=== PATIENT | female | born 1980 | race Caucasian/White ===

== ENCOUNTER 2020-01-09 15:24 | Outpatient (CLI) | payer BC, OTHER, SELFPAY ==
--- NOTE | 2020-01-09 15:53 | CT_ITS ---
WS: [id number] CT scan of the abdomen and pelvis with IV contrast. Additional two-dimensional coronal and sagittal reconstruction was performed. 01/09/2020 Clinical Data: POST SURGICAL ABDOMINAL PAIN Comparison: CT abdomen and pelvis, 10/05/2019. DLP: 1107.[address] scans at [facility] use at least one of these dose optimization techniques: automat ed exposure control; mA and/or kV adjustment per patient size (includes targeted exams where dose is matched to clinical indication); or iterative reconstruction. Findings: The lower lungs show no nodules, masses or effusions. The liver, gallbladder, spleen, adrenal glands and pancreas are normal. The kidneys show equal bilateral contrast excretion with no cyst or masses. The abdominal aorta is normal in size. No appendicitis or diverticulitis is seen. The stomach, small bowel and colon show no abnormalities. There is a duodenal diverticulum which is not changed. The patient is had sigmoid surgery. There is a fluid containing structure adjacent to the anastomosis measuring 2.50 cm which has the appearance of an adnexal cyst. No abscess, adenopathy, ascites, mass, obstruction or free air is seen. The bladder is unremarkable. Uterus is normal. 0No inguinal hernia is seen. The bones of the lower thorax, lumbar spine, pelvis, and hips are normal. CT/CT abdomen pelvis w con* [id number] Impression: 1. Recent surgery in the sigmoid colon but no abscess seen. 2. Small fluid containing structure in the left adnexa which appears to be an o varian cyst. Recommend pelvic ultrasound for confirmation.
[2020-01-09] MEDS: iohexol 300 mg/mL 100 mL Btl IV (16:02)
== END 2020-01-09 15:25 | disposition home or self-care (01) ==
PROVIDERS: Family Provider Nurse Practitioner Family; PCP Emergency Medicine; Visit Provider Emergency Medicine
DX: G89.18 Other acute postprocedural pain (principal); Z98.890 Other specified postprocedural states
CPT/HCPCS: 74177; 80053; 81000; 85025; Q9967

== ENCOUNTER 2020-01-15 14:59 | Outpatient (CLI) | payer BC, OTHER, SELFPAY ==
--- NOTE | 2020-01-15 15:45 | US_ITS ---
WS: [id number] ULTRASOUND PELVIS TECHNIQUE: Transabdominal. CLINICAL INFORMATION: acute abdominal pain LMP: : No. COMPARISON: None. FINDINGS: Uterus Orientation: Anteverted. Size: 9.2 cm x 4.0 cm x 2.6 cm Masses: None. Cervix: Normal Endometrium: Normal. Endometrium thickness: 0.2 cm. Adnexa: Hypoechoic lesion left ovary with some internal echoes likely represents hemorrhagic cyst vikki suring 2.2 x 1.9 x 1.8 cm. Right ovary size: 3.0 cm x 1.9 cm x 1.9 cm. Right ovary volume: 5.8 ccm3 Left ovary size: 3.7 cm x 2.6 cm x 2.3 cm. Left ovary volume: 11.5 ccm3 Free fluid: Small amount of free fluid in the cul-de-sac Other findings: None. US/US pelvic complete* [id number] IMPRESSION: 1. Uterus measures 9.1 x 2.6 x 3.9 CM. 2. Normal endometrium measuring 1.6 mm. 3. Both ovaries are normal in appearance. 4. Small hemorrhagic cyst left ovary measuring 2.2 x 1.9 x 1.8 cm. Recommend f ollow-up in one to 2 menstrual cycles. 5. Small amount of free fluid in the cul-de-sac.
== END 2020-01-15 15:00 | disposition home or self-care (01) ==
PROVIDERS: Family Provider Nurse Practitioner Family; PCP Emergency Medicine; Visit Provider Emergency Medicine
DX: R10.9 Unspecified abdominal pain (principal); N83.202 Unspecified ovarian cyst, left side
CPT/HCPCS: 76856

== ENCOUNTER → 2020-04-21 11:07 | Outpatient (BNVA) | payer BC, OTHER, SELFPAY | PROVIDERS: Family Provider Nurse Practitioner Family; PCP Emergency Medicine; Visit Provider Family Medicine | DX: R19.7 Diarrhea, unspecified (principal); I10 Essential (primary) hypertension; R10.12 Left upper quadrant pain; K90.9 Intestinal malabsorption, unspecified | CPT/HCPCS: 80053; 81000; 83690; 85025; 85610; 87493 ==

== ENCOUNTER → 2020-08-02 10:53 | Outpatient (BNVA) | payer BC, SELFPAY | PROVIDERS: Family Provider Nurse Practitioner Family; PCP Emergency Medicine; Visit Provider Nurse Practitioner Family | DX: J06.9 Acute upper respiratory infection, unspecified (principal); Z20.828 Contact with and (suspected) exposure to other viral communicable diseases | CPT/HCPCS: 87635 ==

== ENCOUNTER → 2020-09-08 11:26 | Outpatient (BNVA) | payer BC, SELFPAY | PROVIDERS: Family Provider Nurse Practitioner Family; PCP Emergency Medicine; Visit Provider Nurse Practitioner Family | DX: Z20.828 Contact with and (suspected) exposure to other viral communicable diseases (principal); J06.9 Acute upper respiratory infection, unspecified | CPT/HCPCS: 87635 ==

== ENCOUNTER → 2020-09-28 17:10 | Outpatient (BNVA) | payer BC, SELFPAY | PROVIDERS: Family Provider Nurse Practitioner Family; PCP Emergency Medicine; Visit Provider Nurse Practitioner Family | DX: B34.9 Viral infection, unspecified (principal); Z20.828 Contact with and (suspected) exposure to other viral communicable diseases | CPT/HCPCS: 87635 ==

== ENCOUNTER 2020-10-19 22:24 | Emergency (ER) | payer BC, OTHER, SELFPAY ==
[2020-10-19 22:27] VITALS: BP 137/97; PULSE 105; RESP 18; TEMP 36.8; O2SAT 97; BMI 35.9
[2020-10-19 23:14] LABS: Basophils # 0.1 10^3/uL (0.0-0.1); Basophils % 0.9 %; Eosinophils # 0.2 10^3/uL (0.0-0.8); Eosinophils % 2.5 %; Hematocrit 45.9 % (37.0-47.0); Hemoglobin 15.3 g/dL (11.5-15.3); Lymphocytes # 2.8 10^3/uL (0.8-4.8); Lymphocytes % 41.2 %; Mean Corpuscular HGB Conc 33.3 g/dL (30.0-36.0); Mean Corpuscular Hemoglobin 31.7 pg (28.0-34.0); Mean Platelet Volume 8.6 fL (7.4-10.4); Monocytes # 0.4 10^3/uL (0.2-0.9); Monocytes % 5.7 %; Neutrophils # 3.31 10^3/uL (1.8-7.7); Neutrophils % 49.3 %; Nucleated Red Blood Cells % 0 %; Platelet Count 307 10^3/cmm (130-400); Red Blood Count 4.83 10^6/uL (4.1-5.3); Red Cell Distribution Width 12.7 % (12.1-15.1); White Blood Count 6.7 10^3/uL (4.0-10.0)
[2020-10-19 23:40] LABS: Alanine Aminotransferase 58 U/L (0-33); Albumin Level 3.9 g/dL (3.5-5.2); Alkaline Phosphatase 93 IU/L (35-105); Anion Gap 15.9 (5-19); Aspartate Amino Transferase 53 U/L (0-32); Blood Urea Nitrogen 7 mg/dL (6-20); Calcium 9.1 mg/dL (8.5-10.5); Carbon Dioxide 22 mmol/L (22-29); Chloride 104 mmol/L (98-107); Globulin 3.4 g/dL (1.3-4.6); Glomerular Filtration Rate 78.7 mL/min (90-130); Glucose 116 mg/dL (65-115); Lipase 35 U/L (13-60); Osmolality Calculated 285 mOsm/kg (285-295); Potassium 3.9 mmol/L (3.5-5.1); Sodium 138 mmol/L (136-145); Total Bilirubin 0.2 mg/dL (0.15-1.2); Total Protein 7.3 g/dL (6.6-8.7)
[2020-10-20 00:57] LABS: HCG Qualitative Urine. Negative (Negative)
== END 2020-10-20 01:21 | disposition left against medical advice (07) ==
PROVIDERS: Emergency Medicine; Emergency Provider Family Medicine; PCP Emergency Medicine
DX: Z53.21 Procedure and treatment not carried out due to patient leaving prior to being seen by health care provider (principal)
CPT/HCPCS: 80053; 81025; 83690; 85025; 99281; 99282

== ENCOUNTER 2020-10-20 12:44 | Emergency (ER) | payer BC, OTHER, SELFPAY ==
[2020-10-20 13:25] VITALS: BP 156/106; PULSE 91; RESP 16; TEMP 36.8; O2SAT 99; BMI 35.9
--- NOTE | 2020-10-20 14:22 | CT_ITS ---
WS: [id number] CT ABDOMEN AND PELVIS WITH CONTRAST HISTORY: diffuse abdominal pain TECHNIQUE: Imaging performed of the abdomen and pelvis with IV contrast. Single phase imaging of the abdomen. Coronal and sagittal reformats are submitted. All CT scans at [facility] use at least one of these dose optimization techniques: automated exposure control; mA and/or kV adjustment per patient size (includes targeted exams where dose is matched to clinical indication); or iterativ e reconstruction. IV CONTRAST: Omnipaque 300; 95 mL IV. Oral contrast: No DLP: 1090.0 mGy.cm COMPARISON: 01/09/2020 Lower thorax: Lung bases are clear. Heart is normal size. Small hiatal hernia. Liver/biliary system: Moderately enlarged liver with low attenuation from hepatic steatosis. No defin ite enhancing masses within the liver. Indeterminate for small hemangioma in the lateral RIGHT lobe o f the liver. No bile duct dilatation. Gallbladder: Normal. No gallstones or wall thickening. No pericholecystic fluid. Pancreas: Normal. Spleen: Normal. Adrenal glands: Normal. Right kidney: Normal. Left kidney: Normal. Aorta: Normal. Lymphadenopathy: None. Free fluid: None. GI tract: Normal appendix. The appendix is retrohepatic. No GI tract obstruction. There is moderate f ecal retention from constipation. Surgical sutures are noted near the sigmoid. No acute diverticuliti s. Abdominal wall: Ventral abdominal wall hernia. The orifice measures 2.6 cm. Herniated omental fat wit h stranding and reticulation through the herniated fat. Pelvis: Normally distended urinary bladder. Normal size anteverted uterus. No free fluid. Bones: Unremarkable. CT/CT abdomen pelvis w con* [id number] IMPRESSION: 1. Ventral abdominal wall hernia with herniated omental fat. Herniated omental fat has undergone acute fat necrosis. Typically this is self limiting. 2. Normal appendix. No renal obstruction. 3. Moderate hepatomegaly and hepatic steatosis.
--- NOTE | 2020-10-20 14:23 | W.ED.ABDPA2 ---
HPI - Abdominal Pain General: Chief Complaint: Abdominal Pain Stated Complaint: abd pain Time Seen by Provider: 10/20/20 14:15 Source: patient Mode of arrival: ambulatory Limitations: no limitations History of Present Illness: HPI narrative: Patient is a very nice 40-year-old female who presents to ED today with a complaint of diffuse abdominal pain. Patient tells me approximately a year ago she had a colon resection performed due to diverticulitis. Patient tells me since then she has suffered from intermittent chronic abdominal pains. She states over the past 3 days she has had abdominal pain that does not feel characteristic of her chronic pain. She is reporting pain that is intermittent and severe in nature. She is having nausea without vomiting. She describes chronic diarrhea that has been present since her surgery. There have been no acute changes in her bowel habits. She has not been running fevers. No urinary symptoms. Her only other abdominal surgery includes a section. MD elicited complaint: abdominal pain Pertinent past history: diverticulitis Onset (ago): day(s) Pain Consistency: constant and colicky Location: Diffuse Severity: moderate Radiation: none Migration to: no migration Exacerbating factors: nothing Relieving factors: nothing Associated Symptoms: Reports nausea; Denies change in stool character, chills, coffee ground emesis, dysuria, excessive flatus, fever(s), hematochezia, hematemesis, melena and vomiting Related Data: Date of Last Menstrual Period: 09/16/19 Patient : No Review of Systems Const: Denies: fever(s), chills, body aches, fatigue or malaise Card: Denies: chest pain Resp: Denies: dyspnea GI: Reports: abdominal pain, nausea and diarrhea (chronic); Denies: vomiting, hematemesis, coffee ground emesis, excessive flatus, pain on defecation, change in stool character, hematochezia, melena or white/light colored stool : Denies: flank pain, difficulty voiding, dysuria, urinary frequency, urinary urgency or urinary hesitancy Musc: Denies: neck pain or back pain Skin/Breast: Denies: rash Neuro: Denies: headache(s) PFS ED PFSH: Medical History Depression, major ANGELA (generalized anxiety disorder) GERD (gastroesophageal reflux disease) Hypertension Surgical History History of partial colectomy Social History (Updated 10/20/20 @ 13:29 by Jose Johnston RN) Smoking and tobacco status: never smoked Alcohol intake: current Alcohol intake frequency: 0-2 Drinks per Day Alcohol type: beer History of recent travel: No Female Reproductive History: Date of last menstrual period: 09/16/19 Spontaneous abortions: No Physical Exam Const: COMMON NORMALS: no acute distress, patient oriented x3, no limitations and alert GENERAL APPEARANCE: cooperative and in distress (appears uncomfortable ) NUTRITIONAL APPEARANCE: obese HENMT: COMMON NORMALS: normocephalic and atraumatic HEAD & SCALP: normocephalic and atraumatic Resp: COMMON NORMALS: normal respiratory effort and clear to auscultation bilaterally AUSCULTATION: clear to auscultation bilaterally Cardio: COMMON NORMALS: regular rate and regular rhythm RATE: regular rate RHYTHM: regular rhythm GI: COMMON NORMALS: Normal to inspection, nondistended, normoactive bowel sounds present, Soft to palpation, No hepatosplenomegaly present and no masses PALPATION: Yes Soft to palpation, Yes Tenderness to palpation present (GI) (diffusely ), Yes No hepatosplenomegaly present and Yes Hernia present (palpable with valsalva; no overlying skin changes ) ventral : COMMON NORMALS: Yes no CVA tenderness BLADDER/KIDNEY EXAM: Yes no CVA tenderness EXTERNAL FEMALE EXAM: Yes Hernia present (palpable with valsalva; no overlying skin changes ) Back/Pelvis: COMMON NORMALS: no CVA tenderness Extremity: COMMON NORMALS: no clubbing, cyanosis or edema, no calf tenderness and no pedal edema Neuro: COMMON NORMALS: patient oriented x3 SENSORIUM/ORIENTATION: Yes alert Skin: COMMON NORMALS: no rashes or lesions noted GENERAL SKIN EXAM: no rashes or lesions noted Course Consultations: Consultation #1: Dr. Mcgovern-reviewed pts CT imaging and recommends seeing her in office on Sunday. Stated pt needs to return to ED for worsening symptoms/pain. Vital Signs: Vital signs: Vital Signs Temperature 98.2 F 10/20/20 13:25 Pulse Rate 88 10/20/20 14:30 Respiratory Rate 16 10/20/20 15:59 Blood Pressure 137/94 10/20/20 14:30 Pulse Oximetry 98 10/20/20 14:30 MDM - Abdominal Pain MDM Narrative: Medical decision making narrative: Patient here with acute on chronic abdominal pain. Her vital signs and labs are non-concerning at this time. CT scan showing a ventral hernia with acute omental fat necrosis. General surgery has reviewed patient's CT scan will see her on Sunday. She has been made aware she needs to return to the emergency department for worsening symptoms. Lab Data: Labs: Lab Results 10/20/20 10/20/20 10/20/20 Range/Units 15:20 15:20 15:20 WBC 7.7 (4.0-10.0) 10^3/ uL RBC 4.40 (4.1-5.3) 10^6/u L Hgb 13.9 (11.5-15.3) g/dL Hct 40.9 (37.0-47.0) % MCV 93.0 (81-99) fL MCH 31.6 (28.0-34.0) pg MCHC 34.0 (30.0-36.0) g/dL RDW 12.5 (12.1-15.1) % Plt Count 261 (130-400) 10^3/c mm MPV 8.7 (7.4-10.4) fL Neut % (Auto) 61.1 % Lymph % (Auto) 29.5 % [place] % (Auto) 6.7 % Eos % (Auto) 1.7 % Baso % (Auto) 0.5 % Neut # (Auto) 4.72 (1.8-7.7) 10^3/u L Lymph # (Auto) 2.3 (0.8-4.8) 10^3/u L [place] # (Auto) 0.5 (0.2-0.9) 10^3/u L Eos # (Auto) 0.1 (0.0-0.8) 10^3/u L Baso # (Auto) 0.0 (0.0-0.1) 10^3/u L Nucleated RBC % (a uto) 0 % Nucleated RBCs # 0.0 /100WBC Sodium 133 L (136-145) mmol/L Potassium 3.8 (3.5-5.1) mmol/L Chloride 100 (98-107) mmol/L Carbon Dioxide 25 (22-29) mmol/L Anion Gap 11.8 (5-19) BUN 7 (6-20) mg/dL Creatinine 0.7 (0.5-0.9) mg/dL GFR Calculation 91.8 (90-130) mL/min Glucose 89 (65-115) mg/dL Calculated Osmolal ity 273 L (285-295) mOsm/k g Calcium 8.6 (8.5-10.5) mg/dL Total Bilirubin 0.4 (0.15-1.2) mg/dL AST 43 H (0-32) U/L ALT 52 H (0-33) U/L Alkaline Phosphata se 85 (35-105) IU/L Total Protein 6.6 (6.6-8.7) g/dL Albumin 3.5 (3.5-5.2) g/dL Globulin 3.1 (1.3-4.6) g/dL Lipase 27 (13-60) U/L HCG, Qual Negative (Negative) Urine Color (Yellow) Urine Appearance (CLEAR) Urine pH (5-7) Ur Specific Gravit y (1.005-1.030) Urine Protein (Negative) Urine Glucose (UA) (Normal) Urine Ketones (Negative) Urine Blood (Negative) Urine Nitrate (Negative) Urine Bilirubin (Negative) Urine Urobilinogen (Negative) mg/dL Ur Leukocyte Ernestine ase (Negative) 10/20/20 Range/Units 15:35 WBC (4.0-10.0) 10^3/ uL RBC (4.1-5.3) 10^6/u L Hgb (11.5-15.3) g/dL Hct (37.0-47.0) % MCV (81-99) fL MCH (28.0-34.0) pg MCHC (30.0-36.0) g/dL RDW (12.1-15.1) % Plt Count (130-400) 10^3/c mm MPV (7.4-10.4) fL Neut % (Auto) % Lymph % (Auto) % [place] % (Auto) % Eos % (Auto) % Baso % (Auto) % Neut # (Auto) (1.8-7.7) 10^3/u L Lymph # (Auto) (0.8-4.8) 10^3/u L [place] # (Auto) (0.2-0.9) 10^3/u L Eos # (Auto) (0.0-0.8) 10^3/u L Baso # (Auto) (0.0-0.1) 10^3/u L Nucleated RBC % (a uto) % Nucleated RBCs # /100WBC Sodium (136-145) mmol/L Potassium (3.5-5.1) mmol/L Chloride (98-107) mmol/L Carbon Dioxide (22-29) mmol/L Anion Gap (5-19) BUN (6-20) mg/dL Creatinine (0.5-0.9) mg/dL GFR Calculation (90-130) mL/min Glucose (65-115) mg/dL Calculated Osmolal ity (285-295) mOsm/k g Calcium (8.5-10.5) mg/dL Total Bilirubin (0.15-1.2) mg/dL AST (0-32) U/L ALT (0-33) U/L Alkaline Phosphata se (35-105) IU/L Total Protein (6.6-8.7) g/dL Albumin (3.5-5.2) g/dL Globulin (1.3-4.6) g/dL Lipase (13-60) U/L HCG, Qual (Negative) Urine Color Yellow (Yellow) Urine Appearance Clear (CLEAR) Urine pH 5 (5-7) Ur Specific Gravit y 1.005 (1.005-1.030) Urine Protein Neg (Negative) Urine Glucose (UA) Norm (Normal) Urine Ketones Negative (Negative) Urine Blood Neg (Negative) Urine Nitrate Negative (Negative) Urine Bilirubin Neg (Negative) Urine Urobilinogen Norm (Negative) mg/dL Ur Leukocyte Ernestine ase Negative (Negative) Imaging Data ^: CT Abd/Pel: Radiologist's impression: [address] [place] [address] CT Scan Report Signed Patient: Leidy Logn #: [id number] : 1980Acct#:[id number] Age/Sex: 40 / FADM Date: 10/20/20 Loc: ERRoom/Bed: Attending Dr: Ordering Provider/Ordering MD: Nola Burt Date of Service: 10/20/20 Procedure(s): CT abdomen pelvis w con* [id number] Accession Number(s): [id number] Report Number: [id number] WS: [id number] CT ABDOMEN AND PELVIS WITH CONTRAST HISTORY: diffuse abdominal pain TECHNIQUE: Imaging performed of the abdomen and pelvis with IV contrast. Single phase imaging of the abdomen. Coronal and sagittal reformats are submitted. All CT scans at [facility] use at least one of these dose optimization techniques: automated exposure control; mA and/or kV adjustment per patient size (includes targeted exams where dose is matched to clinical indication); or iterative reconstruction. IV CONTRAST: Omnipaque 300; 95 mL IV. Oral contrast: No DLP: 1090.0 mGy.cm COMPARISON: 01/09/2020 Lower thorax: Lung bases are clear. Heart is normal size. Small hiatal hernia. Liver/biliary system: Moderately enlarged liver with low attenuation from hepatic steatosis. No definite enhancing masses within the liver. Indeterminate for small hemangioma in the lateral RIGHT lobe of the liver. No bile duct dilatation. Gallbladder: Normal. No gallstones or wall thickening. No pericholecystic fluid. Pancreas: Normal. Spleen: Normal. Adrenal glands: Normal. Right kidney: Normal. Left kidney: Normal. Aorta: Normal. Lymphadenopathy: None. Free fluid: None. GI tract: Normal appendix. The appendix is retrohepatic. No GI tract obstruction. There is moderate fecal retention from constipation. Surgical sutures are noted near the sigmoid. No acute diverticulitis. Abdominal wall: Ventral abdominal wall hernia. The orifice measures 2.6 cm. Herniated omental fat with stranding and reticulation through the herniated fat. Pelvis: Normally distended urinary bladder. Normal size anteverted uterus. No free fluid. Bones: Unremarkable. CT/CT abdomen pelvis w con* [id number] IMPRESSION: 1. Ventral abdominal wall hernia with herniated omental fat. Herniated omental fat has undergone acute fat necrosis. Typically this is self limiting. 2. Normal appendix. No renal obstruction. 3. Moderate hepatomegaly and hepatic steatosis. Dictated By:Dorothy Wilkinson DO Signed By:Dorothy Wilkinson DOSigned Date/Time:10/20/20 1539 DD/ 1533 Discharge Plan Discharge Patient Disposition: Home Clinical Impression: Ventral hernia Qualifiers: Obstruction and gangrene presence: without obstruction or gangrene Qualified Code(s): K43.9 - Ventral hernia without obstruction or gangrene Condition: Stable Prescriptions: New hydrocodone-acetaminophen 5-325 mg tablet 1 tab PO Q6H PRN (Reason: pain) Qty: 20 RF: 0 Zofran 4 mg tablet 4 mg PO Q6H PRN (Reason: nausea and vomiting) Qty: 14 RF: 0 No Action fluoxetine 10 mg capsule 10 mg PO DAILY 30 Days Qty: 30 RF: 2 metoprolol succinate 50 mg tablet extended release 24 hr 50 mg PO DAILY 30 Days Qty: 30 RF: 2 medroxyprogesterone 150 mg/mL suspension 150 mg IM .Every three months 90 Days Qty: 1 RF: 3 omeprazole 20 mg capsule,delayed release(DR/EC) 20 mg PO BID 30 Days Qty: 60 RF: 2 Discharge Orders: Discharge ED (Routine); Ordered 10/20/20 Ordered By: Nola Burt Referrals: Michael Mcgovern MD [Physician] - Eb Blanco PA [Primary Care Provider] - Patient Instructions: Abdominal Hernia, Ventral Hernia (ED) Activity Restrictions/Additional Instructions: As discussed case management should contact you shortly to set you up with your appointment for Dr. Mcgovern on Sunday. You need to return to the emergency department immediately for worsening or severe abdominal pains, repetitive episodes of vomiting, inability to have a bowel movement or pass gas, fevers, overlying redness/warmth to your hernia, or any other concerns you may have. Stand Alone Forms: Work/School Release Coding Level of Care Code ED Infrastructure Solutions Architect for Chg Fwd Exam Comprehensive
[2020-10-20 14:29] VITALS: BP 157/113; PULSE 82; RESP 16; O2SAT 98
[2020-10-20 14:30] VITALS: BP 137/94; PULSE 88; RESP 16; O2SAT 98
[2020-10-20] MEDS: iohexol 300 mg/mL 100 mL Btl IV (15:07)
[2020-10-20 15:35] LABS: Basophils % 0.5 %; Eosinophils # 0.1 10^3/uL (0.0-0.8); Eosinophils % 1.7 %; Hematocrit 40.9 % (37.0-47.0); Hemoglobin 13.9 g/dL (11.5-15.3); Lymphocytes # 2.3 10^3/uL (0.8-4.8); Lymphocytes % 29.5 %; Mean Corpuscular Hemoglobin 31.6 pg (28.0-34.0); Mean Platelet Volume 8.7 fL (7.4-10.4); Monocytes # 0.5 10^3/uL (0.2-0.9); Monocytes % 6.7 %; Neutrophils # 4.72 10^3/uL (1.8-7.7); Neutrophils % 61.1 %; Nucleated Red Blood Cells % 0 %; Platelet Count 261 10^3/cmm (130-400); Red Cell Distribution Width 12.5 % (12.1-15.1); White Blood Count 7.7 10^3/uL (4.0-10.0)
[2020-10-20] MEDS: ondansetron 2 mg/ML SDV 2 mL 4 MG IVP (15:46)
[2020-10-20 15:47] LABS: Add Urine Microscopic? NO
[2020-10-20] MEDS: sodium chloride 0.9% 1,000 ML 999 ML IV (15:51)
[2020-10-20 15:53] LABS: Bilirubin Urine Neg (Negative); Blood Urine Neg (Negative); Glucose Urine UA Norm (Normal); Ketones Urine Negative (Negative); Leukocyte Esterase Urine Negative (Negative); Nitrate Urine Negative (Negative); Protein Urine Neg (Negative); Specific Gravity, Urine 1.005 (1.005-1.030); Urine Appearance Clear (CLEAR); Urine Color Yellow (Yellow); Urobilinogen Urine Norm (Negative); pH Urine 5 (5-7)
[2020-10-20 15:54] LABS: Alanine Aminotransferase 52 U/L (0-33); Albumin Level 3.5 g/dL (3.5-5.2); Alkaline Phosphatase 85 IU/L (35-105); Aspartate Amino Transferase 43 U/L (0-32); Blood Urea Nitrogen 7 mg/dL (6-20); Calcium 8.6 mg/dL (8.5-10.5); Carbon Dioxide 25 mmol/L (22-29); Chloride 100 mmol/L (98-107); Globulin 3.1 g/dL (1.3-4.6); Glomerular Filtration Rate 91.8 mL/min (90-130); Glucose 89 mg/dL (65-115); Lipase 27 U/L (13-60); Osmolality Calculated 273 mOsm/kg (285-295); Sodium 133 mmol/L (136-145); Total Bilirubin 0.4 mg/dL (0.15-1.2); Total Protein 6.6 g/dL (6.6-8.7)
[2020-10-20 15:57] LABS: HCG, Serum Qual Negative (Negative)
[2020-10-20 15:59] VITALS: RESP 16
[2020-10-20] MEDS: morphine 4 mg/mL SDV 1 mL IVP (15:59)
[2020-10-20 16:00] LABS: Anion Gap 11.8 (5-19); Potassium 3.8 mmol/L (3.5-5.1)
--- NOTE | 2020-10-21 12:50 | DCPLANNER ---
manager intensive care unit had message to schedule a follow up appointment for patient with general surgery. manager intensive care unit emailed both Kena and Poornima, patients information. Patients information will be printed and reviewed, clinic will call patient with appointment information.
--- NOTE | 2020-10-26 08:15 | DCPLANNER ---
Patient had a follow up appointment scheduled for 10.22.[address] Mcgovern at general surgery - patient did attend appointment.
== END 2020-10-20 16:54 | disposition home or self-care (01) ==
PROVIDERS: Emergency Provider Physician Assistant; PCP Emergency Medicine
DX: K43.9 Ventral hernia without obstruction or gangrene (principal); I10 Essential (primary) hypertension
CPT/HCPCS: 12345; 74177; 80053; 81000; 81003; 83690; 84703; 85025; 87086; 96361; 96374; 96375; 99281; 99283; J2270; J2405; J7030; Q9967

== ENCOUNTER → 2020-10-26 14:51 | Outpatient (BNVA) | payer BC, OTHER, SELFPAY | PROVIDERS: PCP Family Medicine; Visit Provider Surgery | DX: Z11.59 Encounter for screening for other viral diseases (principal); K43.0 Incisional hernia with obstruction, without gangrene | CPT/HCPCS: 87635 ==

== ENCOUNTER 2020-11-01 07:18 | Day surgery (SDC) | payer BC, OTHER, SELFPAY ==
[2020-10-29 14:45] VITALS: BMI 35.9
[2020-11-01] VITALS (10 sets, daily range): BP systolic 131–151; BP diastolic 84–99; PULSE 71–94; RESP 16–20; TEMP 36.5–36.8; O2SAT 93–100
[2020-11-01 07:39] LABS: OR HCG Qualitative Urine Negative (Negative)
--- NOTE | 2020-11-01 07:59 | W.PM.OPSUD ---
Surgery/Procedure H&P Update DATE OF PROCEDURE: November 01, 2020 DATE H&P PERFORMED: 10/22/20 H&P UPDATE INFORMATION: I have reviewed H&P completed within last 30 days, I have examined patient prior to procedure and No changes to prior documentation PREOP DIAGNOSIS: incarcerated ventral hernia PLANNED PROCEDURE: Operation Date: 11/01/20 08:45 Proposed Procedures p Laparoscopic Incisional Hernia Repair w/ Mesh poss open 52141 K43.0(Not Applicable) - Michael Mcgovern MD
--- NOTE | 2020-11-01 08:39 | P.ANESASSM_ITS ---
Pre-Anesthetic Assessment Pre-Anesthetic Assessment: Height/Weight: Height 1.55 m Weight 86.183 kg Temp Pulse Resp BP Pulse Ox 97.8 F 90 18 150/99 98 11/01/20 07:44 11/01/20 07:44 11/01/20 07:44 11/01/20 07:44 11/01/20 07:44 Preop Diagnosis: incarcerated ventral hernia Proposed Procedure: Operation Date: 11/01/20 08:45 Proposed Procedures p Laparoscopic Incisional Hernia Repair w/ Mesh poss open [id number] K43.0(Not Applicable) - Michael Mcgovern MD Last intake: Intake Last Liquid Date 10/31/20 Last Liquid Time 23:00 Last Solid Date 10/31/20 Last Solid Time 14:00 Social: Social History: Alcohol Comment: several drinks a day Exam: Pre-Anes Outpt Exam: alert, oriented x 3, clear to auscultation bilaterally and regular rate & rhythm Airway: Submandibular: WNL Cervical ROM: WNL MP: 1 History/ROS: No significant history except as noted CV/HEM: CV/HEM: HTN GI: GI: GERD Anesthetic Plan: ASA status: 2 Anesthesia: Anesthesia Evaluation and General Risk of > 500 ml blood loss (7ml/kg in children): No PFSH Anesthesia 2 PFSH: Medical History (Updated 10/28/20 @ 00:00 by ) Depression, major ANGELA (generalized anxiety disorder) GERD (gastroesophageal reflux disease) Hypertension Surgical History (Updated 10/22/20 @ 12:33 by Michael Mcgovern MD) delivery delivered H/O colonoscopy History of partial colectomy Family History (Updated 10/22/20 @ 12:11 by Belkis Gold LPN) Father CAD (coronary artery disease) Other Cancer Hypertension Stroke Denies family history of Anesthesia complication Bleeding disorder Social History (Updated 10/22/20 @ 12:12 by Belkis Gold LPN) Smoking and tobacco status: never smoked Alcohol intake: current Alcohol intake frequency: 0-2 Drinks per Day Alcohol ty pe: beer Lives independently: Yes Marital status: Single Current occupational status: employed History of recent travel: No Female Reproductive History: Date of last menstrual period: 09/16/19 Spontaneous abortions: No Data Anesthesia Other Labs: Laboratory Results - last 48 hr 11/01/20 07:38 Urine HCG, Qual Negative Cardiac Studies: No Data to Display
[2020-11-01] MEDS: vancomycin 1,000 MG in sodium chloride 0.9% 250 ML 250 MG IV (08:52)
[2020-11-01] MEDS: sodium chloride 0.9% 1,000 ML 30 ML IV (08:54)
[2020-11-01] MEDS: ondansetron 2 mg/ML SDV 2 mL 4 MG IVP (10:24)
[2020-11-01] MEDS: fentaNYL 50 mcg/mL INJ 2mL IVP (10:25)
[2020-11-01] MEDS: metoclopramide 5 mg/mL SDV 2 mL 10 MG (10:35)
[2020-11-01] MEDS: ketorolac 30 mg/mL INJ 15 MG IVP (11:15)
--- NOTE | 2020-11-01 11:27 | PM.OP ---
Operative Report Date of procedure: November 01, 2020 Pre-op Diagnosis: Incarcerated incisional hernia Pre-op Diagnosis: Status post sigmoid colectomy for diverticulitis Post-op Diagnosis: Incarcerated incisional hernia measuring 10 x 7 cm containing omentum Procedure Done: Laparoscopic repair of incarcerated incisional hernia with Ventralight 20 x 15 cm mesh Pathology: none sent Surgeon: Michael Mcgovern Anesthesia: General Condition: stable Disposition: PACU Procedure: The patient was taken to the Operating Room and was intubated under general anesthesia after the antibiotic had been administered. The abdomen was prepped and draped in a sterile manner. Using a 15 blade, a 2-cm incision was made in the left upper quadrant in the anterior axillary line and pneumoperitoneum was created using Verres needle. A 10 mm Jia port was placed and 15 mm of pneumoperitoneum was created after a 10 mm 30? scope had been introduced. 5 mm port was placed at the level of the umbilicus under direct visualization. Using a combination of electrocautery and scissors the peritoneum in the midline was taken down and the omental fat within the hernial sac was reduced. There were multiple Georgian cheese defects noted along the midline incision. A spinal needle was introduced through the abdominal wall and the edges of the hernial defect were marked and measured 10 x 7 cm. A 4-5 cm margin was marked on the abdominal wall on the outer edge of the hernial defect. [address] mesh was selected and 4 separate 2-0 [place] sutures were placed at the 4 corners of the mesh. A 5 mm camera was introduced and the mesh was introduced through the 10 mm port. Grannie needle was passed through the stab incisions and used to grasp the free ends of the [place] sutures which were then used to pull the mesh up against the abdominal wall; 5 mm SecurStraps were placed 1 cm apart along the edge of the mesh to hold it against the abdominal wall. At the end of this, it was noted that the mesh was well positioned over the hernial defect. 20 cc of saline mixed with 20cc of 0.5% Marcaine mixed with 20 of Exparel was injected under laparoscopic visualization for a TAP block. All ports were removed under direct visualization and there was no bleeding noted from the port sites. The external oblique aponeurosis was approximated at this port site using figure of eight 0 Vicryl suture. The subcutaneous tissue was approximated using 3-0 Vicryl sutures. The skin was closed using subcuticular 4-0 Monocryl suture and surgical glue. 10cc of 0.5% Marcaine was infiltrated around the port sites. Abdominal binder was placed at the end of the procedure. The patient was extubated and transferred to recovery room in stable condition
[2020-11-01] MEDS: HYDROcodone-acetaminophen 5-325 mg Tablet 1 TAB PO (12:10)
--- NOTE | 2020-11-01 15:41 | ANE.PACU2 ---
Inpatient post-anesthesia follow up: Airway intact: Yes Vital signs: Temperature 97.7 F Pulse Rate 76 Respiratory Rate 18 Blood Pressure 131/93 Pulse Oximetry 95 Oxygen Delivery Me thod Room Air Oxygen Flow Rate 2 Fraction of Inspir ed Oxygen Hydration adequate: Yes Nausea and vomiting: No Pain level: 3 Mental status: Baseline
== END 2020-11-01 13:28 | disposition home or self-care (01) ==
PROVIDERS: Anesthesiology; PCP Family Medicine; Visit Provider Surgery
PROC: 0WQF4ZZ Repair Abdominal Wall, Percutaneous Endoscopic Approach (ICD-10-PCS; CPT 49655; principal; 2020-11-01 08:35)
DX: K43.0 Incisional hernia with obstruction, without gangrene (principal); Z90.49 Acquired absence of other specified parts of digestive tract; I10 Essential (primary) hypertension; K21.9 Gastro-esophageal reflux disease without esophagitis; F32.9 Major depressive disorder, single episode, unspecified; F41.9 Anxiety disorder, unspecified; Z82.49 Family history of ischemic heart disease and other diseases of the circulatory system
CPT/HCPCS: 49655; 12345; 81025; 84703; 96374; C1718; C9290; J1100; J1885; J2250; J2405; J2550; J2704; J2765; J3010; J3370; J3490; J7030; J7050

== ENCOUNTER 2021-01-17 12:51 | Outpatient (CLI) | payer OTHER, SELFPAY ==
[2021-01-17] MEDS: iohexol 300 mg/mL 50 mL Btl PO (12:59)
--- NOTE | 2021-01-17 14:00 | CT_ITS ---
WS: [id number] CT ABDOMEN AND PELVIS WITH CONTRAST HISTORY: R10.9 - Unspecified abdominal pain TECHNIQUE: Imaging performed of the abdomen and pelvis with IV contrast. Single phase imaging of the abdomen. Coronal and sagittal reformats are submitted. All CT scans at [facility] use at least one of these dose optimization techniques: automated exposure control; mA and/or kV adjustment per patient size (includes targeted exams where dose is matched to clinical indication); or iterativ e reconstruction. IV CONTRAST: Omnipaque 300; 95 mL IV. Oral contrast: Yes. DLP: 1096.61 mGycm COMPARISON: 10/20/2020 Lower thorax: Lung bases are clear. Heart is normal size. Small hiatal hernia. Liver/biliary system: Diffuse hepatic steatosis and moderately enlarged liver. No mass or bile duct d ilatation. Gallbladder: Normal. No gallstones or wall thickening. No pericholecystic fluid. Pancreas: Normal. Spleen: Normal. Adrenal glands: Normal. Right kidney: Normal. Left kidney: Normal. Aorta: Normal. Lymphadenopathy: None. Free fluid: None. GI tract: Anastomotic sutures in the sigmoid colon. No mass or obstruction. The appendix is rectal he patic. Abdominal wall: Ventral abdominal wall hernia has been repaired. No dehiscence. No complications at t he surgical site. Pelvis: Normal. Bones: Unremarkable. CT/CT abdomen pelvis w con* [id number] IMPRESSION: 1. Ventral abdominal wall hernia repair. No complications or dehiscence eviden t. 2. Moderate hepatomegaly and hepatic steatosis. 3. Mild diffuse constipation. 4. Sigmoid anastomosis is stable.
[2021-01-17] MEDS: iohexol 300 mg/mL 100 mL Btl IV (14:24)
== END 2021-01-17 12:52 | disposition home or self-care (01) ==
LOC: RADWPI 12:55
PROVIDERS: PCP Family Medicine; Visit Provider Surgery
DX: R10.9 Unspecified abdominal pain (principal); R16.0 Hepatomegaly, not elsewhere classified; E88.89 Other specified metabolic disorders; K59.00 Constipation, unspecified; K63.89 Other specified diseases of intestine
CPT/HCPCS: 74177; Q9967

== ENCOUNTER → 2021-06-06 15:10 | Outpatient (BNVA) | payer OTHER, SELFPAY | PROVIDERS: PCP Family Medicine; Visit Provider Emergency Medicine | DX: K76.0 Fatty (change of) liver, not elsewhere classified (principal); R10.9 Unspecified abdominal pain | CPT/HCPCS: 80053; 80061; 83690; 85025; 86705; 86706; 86709; 86803; 87340 ==

== ENCOUNTER 2021-07-15 09:10 | Outpatient (CLI) | payer OTHER, SELFPAY ==
--- NOTE | 2021-07-15 09:30 | US_ITS ---
WS: [id number] RIGHT UPPER QUADRANT ULTRASOUND HISTORY: R10.9 - Unspecified abdominal pain COMPARISON: None available. Liver: 14.5 cm in length. Liver is normal size. There is mild coarse echotexture and hepatic steatosi s. No bile duct dilatation. No mass. Gallbladder: Normally distended gallbladder with no stones or wall thickening. CBD: 0.6 cm Pancreas: Normal size and echogenicity. Right kidney: 9.1 cm in length. Normal size and echogenicity. No hydronephrosis or mass. Aorta and IVC: Unremarkable abdominal aorta and IVC. No ascites. US/US abdomen limited [id number] IMPRESSION: 1. Normal gallbladder. 2. Normal size liver with mild hepatic steatosis.
== END 2021-07-15 09:11 | disposition home or self-care (01) ==
LOC: RAD 09:17
PROVIDERS: PCP Family Medicine; Visit Provider Emergency Medicine
DX: R10.9 Unspecified abdominal pain (principal); K76.0 Fatty (change of) liver, not elsewhere classified; Z78.9 Other specified health status
CPT/HCPCS: 76705

== ENCOUNTER 2022-02-10 15:21 | Outpatient (CLI) | payer OTHER, SELFPAY ==
--- NOTE | 2022-02-10 15:38 | MM_ITS ---
WS: [id number] BILATERAL 3D TOMOSYNTHESIS DIGITAL SCREENING MAMMOGRAPHY WITH CAD CLINICAL INFORMATION: SCREENING HISTORY: Screening mammogram. No current complaints. COMPARISON: None. TECHNIQUE: Bilateral CC and MLO views. FINDINGS: Scattered fibroglandular densities bilaterally. Asymmetric density central RIGHT breast measuring 7 m m best seen on the MLO view. Additional ovoid asymmetry measuring 12 mm anterior RIGHT breast best s een on the cc view with a few calcifications. Recommend RIGHT diagnostic mammography and ultrasound f or further evaluation MM/[place] [id number] IMPRESSION: BI-RADS: 0-Incomplete: Need additional imaging evaluation FOLLOW UP: Need Additional Imaging Recommend RIGHT breast diagnostic mammography and ultrasound.
== END 2022-02-10 15:22 | disposition home or self-care (01) ==
PROVIDERS: PCP Family Medicine; Visit Provider Family Medicine
DX: Z12.31 Encounter for screening mammogram for malignant neoplasm of breast (principal)
CPT/HCPCS: 77063; 77067

== ENCOUNTER 2022-02-21 15:14 | Outpatient (CLI) | payer OTHER, MEDICAID, SELFPAY ==
--- NOTE | 2022-02-21 15:26 | MM_ITS ---
WS: [id number] BILATERAL 3D TOMOSYNTHESIS DIGITAL DIAGNOSTIC MAMMOGRAPHY WITH CAD CLINICAL INFORMATION: ABNORMAL MAMMO COMPARISON: February 10, 2022 TECHNIQUE: Bilateral CC, MLO, and ML views. FINDINGS: Scattered fibroglandular densities bilaterally. Stable asymmetric density central RIGHT breast measur ing 7 mm. Stable ovoid asymmetry 12 mm anterior RIGHT breast. Ultrasound is pending. ULTRASOUND BREAST RIGHT TECHNIQUE: Ultrasound RIGHT breast focused area of concern. CLINICAL INFORMATION: ABNORMAL MAMMO COMPARISON: None. FINDINGS: RIGHT BREAST: Ultrasound RIGHT breast at the 9-12 o'clock position. Several incidental lymph nodes ar e visualized with normal fatty alex. At the 12:00 position is a dilated duct with some internal debri s. Area of ductal dilatation measures 1.2 x 0.4 x 1.8 cm. Recommend 6 month follow-up to confirm stab ility. This is probably benign. Echogenic lesion at the 12:00 position 6 cm from the nipple measuring 0.6 x 0.3 x 0.9 cm consistent w ith an incidental lipoma. MM/[place] [id number] IMPRESSION: BI-RADS: 3-Probably Benign FOLLOW UP: 6 Month Follow-up Recommend 6 month follow-up RIGHT diagnostic mammography and ultrasound with at tention to the ductal ectasia at the 12:00 position 3 cm from the nipple with i nternal debris.
== END 2022-02-21 15:15 | disposition home or self-care (01) ==
PROVIDERS: PCP Family Medicine; Visit Provider Family Medicine
DX: R92.8 Other abnormal and inconclusive findings on diagnostic imaging of breast (principal)
CPT/HCPCS: 76642; 77061

== ENCOUNTER → 2022-03-29 13:53 | Outpatient (BNVA) | payer OTHER, MEDICAID, SELFPAY | PROVIDERS: PCP Family Medicine; Visit Provider Family Medicine | DX: Z30.9 Encounter for contraceptive management, unspecified (principal); I10 Essential (primary) hypertension; F32.1 Major depressive disorder, single episode, moderate; Z30.09 Encounter for other general counseling and advice on contraception; K21.9 Gastro-esophageal reflux disease without esophagitis; Z30.42 Encounter for surveillance of injectable contraceptive; R92.8 Other abnormal and inconclusive findings on diagnostic imaging of breast | CPT/HCPCS: 81025 ==

== ENCOUNTER → 2022-08-25 07:21 | Outpatient (BNVA) | payer OTHER, MEDICAID, SELFPAY | PROVIDERS: PCP Family Medicine; Referring Provider Family Medicine; Visit Provider Student in an Organized Health Care Education/Training Program | DX: G56.01 Carpal tunnel syndrome, right upper limb (principal); D17.21 Benign lipomatous neoplasm of skin and subcutaneous tissue of right arm | CPT/HCPCS: 73110 ==

== ENCOUNTER → 2022-09-25 09:35 | Outpatient (BNVA) | payer OTHER, MEDICAID, SELFPAY | PROVIDERS: PCP Family Medicine; Visit Provider Nurse Practitioner Family | DX: S99.911A Unspecified injury of right ankle, initial encounter (principal); X58.XXXA Exposure to other specified factors, initial encounter | CPT/HCPCS: 73610 ==

== ENCOUNTER 2022-09-26 15:21 | Outpatient (CLI) | payer OTHER, MEDICAID, SELFPAY ==
--- NOTE | 2022-09-26 16:00 | MR_ITS ---
WS: [id number] MRI RIGHT ELBOW WITH AND WITHOUT CONTRAST. COMPARISON: None Multiplanar, multisequence imaging is performed with and without contrast. MultiHance 20 mL IV. Lobulated soft tissue mass posterior to the proximal ulna within the soft tissue measures 2.7 x 1.1 c m. There is mild deformity and mass effect of the adjacent muscles and soft tissues. There is a small amount of edema. This mass is external to the muscles of the forearm. On the postcontrast imaging no significant enhancement. This follows fat signal on nearly all sequences. There is no joint effusion at the elbow. No muscle edema. Distal triceps tendon the biceps tendons ar e normal. MR/MR forearm RT wo/w con [id number] IMPRESSION: Lobulated soft tissue mass measuring 2.7 x 1.1 cm along the dorsal surface of t he proximal ulna. There is no enhancement. This is most likely a lipoma. Follow s fat signal on all sequences with no enhancement.
[2022-09-26] MEDS: gadobenate dimeglumine 20 mL vial IV (16:23)
== END 2022-09-26 15:22 | disposition home or self-care (01) ==
LOC: RAD 15:23
PROVIDERS: PCP Family Medicine; Visit Provider Student in an Organized Health Care Education/Training Program
DX: D17.21 Benign lipomatous neoplasm of skin and subcutaneous tissue of right arm (principal)
CPT/HCPCS: 73220; A9577

== ENCOUNTER 2022-09-27 05:29 | Day surgery (SDC) | payer OTHER, MEDICAID, SELFPAY ==
[2022-09-26 12:08] VITALS: BMI 36.4
[2022-09-27 06:19] VITALS: BP 170/108; PULSE 85; RESP 16; TEMP 36.8; O2SAT 98
[2022-09-27] MEDS: ketorolac 30 mg/mL INJ IVP (06:26)
[2022-09-27] MEDS: sodium chloride 0.9% 1,000 ML 30 ML IV (06:28)
[2022-09-27] MEDS: acetaminophen 1,000 MG/100 ML PIGGYBACK 400 MG IV (06:28)
--- NOTE | 2022-09-27 06:35 | ANES.PREANE2 ---
Pre-Anesthetic Assessment Height/Weight: Height 1.55 m Weight 87.543 kg Temp Pulse Resp BP Pulse Ox O2 Del Method 98.3 F 85 16 170/108 98 09/27/22 06:19 09/27/22 06:19 09/27/22 06:19 09/27/22 06:19 09/27/22 06:19 09/27/22 06:19 Preop Diagnosis: Right forearm lipoma, right carpal tunnel syndrome Operation Date: 09/27/22 07:00 Proposed Procedures p Carpal tunnel release 18910, Mass excision right forearm 63423.G56.0,R22.9(Right) - Nicolas Fernandez DO s Excision Mass/Lesion Upper Extremity(Right) - Nicolas Fernandez DO Familial anesthetic complications: None Was Beta Modesta taken within 24 hours: Yes Was Clonidine taken within 24 hours: N/A Last intake: Intake Last Liquid Date 09/26/22 Last Liquid Time 21:00 Last Solid Date 09/26/22 Last Solid Time 21:00 Social Alcohol and No tobacco Exam alert, oriented x 3, clear to auscultation bilaterally and regular rate & rhythm Airway Mallampati: Class III Dentition: full CV/HEM Hypertension Hepatic alcoholic fatty liver GI Gastroesophageal Reflux Disease Neuropsych Neuropathy Anesthetic Plan ASA status: 2 Anesthesia: General Risk of > 500 ml blood loss (7ml/kg in children): No Medications/Allergies Home Medications Medication Instructions Recorded Confirmed Last Taken Type hydroxyzine HCl 25 mg tablet 25 mg PO BID PRN anxiety/panic #60 09/21/21 09/27/22 Unknown Rx tabs metoprolol succinate 50 mg 50 mg PO DAILY 90 days #90 tabs 03/29/22 09/27/22 09/27/22 Rx tablet,extended release 24 hr bupropion HCl 150 mg 24 hr tablet, 150 mg PO QAM 30 days #30 tabs 06/19/22 09/27/22 09/24/22 Rx extended release miscellaneous medical supply See Rx Instructions miscellaneous 07/11/22 09/26/22 Unknown Rx .COMPLEX #2 ea medroxyprogesterone 150 mg/mL 150 mg IM .Every three months 90 07/18/22 09/27/22 08/07/22 Rx intramuscular suspension days #1 mL omega-3 fatty acids-fish oil 300 2 cap PO DAILY 07/19/22 09/27/2209/24/22 History mg-500 mg capsule (Fish Oil) Allergies Allergy/AdvReac Type Severity Reaction Status Date / Time Penicillins Allergy throat Verified 09/25/22 09:10 swelling and hives Current Medications Generic Name Dose Route Start Last Admin Trade Name Joseline PRN Reason Stop Dose Admin Sodium Chloride 1,000 mls @ 30 mls/hr 09/27/22 06:15 09/27/22 06:28 Sodium Chloride 0.9% IV 09/28/22 06:14 30 mls/hr .Q24H COLTON Administration PFSH Anesthesia Medical History Depression, major Duodenal diverticulum ANGELA (generalized anxiety disorder) GERD (gastroesophageal reflux disease) Hypertension Lipoma of right forearm Surgical History delivery delivered History of colonoscopy 2020 History of incisional hernia repair (11/01/20) History of partial colectomy Family History Father CAD (coronary artery disease) Other Cancer Hypertension Stroke Denies family history of Anesthesia complication Bleeding disorder Social History Smoking and tobacco status: never smoked Alcohol intake: current Alcohol intake frequency: 0-2 Drinks per Day Alcohol type: beer Lives independently: Yes Marital status: Single Current occupational status: employed History of recent travel: No Female Reproductive History Spontaneous abortions: No Data Anesthesia Cardiac Studies: No Data to Display
[2022-09-27 06:42] LABS: OR HCG Qualitative Urine Negative (Negative)
--- NOTE | 2022-09-27 06:48 | W.PM.OPSFHP ---
Same Day Surgery H&P Indication for Procedure/HPI DATE OF PROCEDURE: September 27, 2022 CHIEF COMPLAINT/INDICATIONFOR SURGICAL PROCEDURE: Right forearm lipoma, right carpal tunnel syndrome PREOP DIAGNOSIS: Right forearm lipoma, right carpal tunnel syndrome PLANNED PROCEDURE: Operation Date: 09/27/22 07:00 Proposed Procedures p Carpal tunnel release 78011, Mass excision right forearm 22529.G56.0,R22.9(Right) - Nicolas Fernandez DO s Excision Mass/Lesion Upper Extremity(Right) - Nicolas Fernandez DO Patient was seen and worked up in the outpatient setting. Patient had EMG/nerve conduction studies consistent with right median nerve entrapment at the wrist consistent with carpal tunnel syndrome. Her exam findings were consistent with this. We talked about her treatment options and given she is failed conservative treatment and would like to hold off on any further conservative treatment and way of injection would like to get this taken care of she elects to proceed with surgical intervention. She understands the risk benefits complication alternatives of surgical nonsurgical treatment options. Since the lipoma does bother her when she rests her arm down she asked if it would be okay if we have this removed. This has been worked up with an MRI and is consistent with a lipoma and we will consent her for a right forearm lipoma excision in addition to right carpal tunnel release. She understands risk benefits complications and alternatives with surgery. She understands the risk for surgery and she agrees to proceed with surgical intervention. ROS Denies any fevers chills chest pain shortness of breath nausea or vomiting Medications/Allergies* Penicillins Home Medications Medication Instructions Recorded Confirmed Type omega-3 fatty acids-fish oil 300 2 cap PO DAILY 07/19/22 09/27/22 History mg-500 mg capsule (Fish Oil) Allergies/Adverse Reactions Allergy/AdvReac Type Severity Reaction Status Date / Time Penicillins Allergy throat Verified 09/25/22 09:10 swelling and hives Current Medications: Generic Name Dose Route Start Last Admin Trade Name Freq PRN Reason Stop Dose Admin Sodium Chloride 1,000 mls @ 30 mls/hr 09/27/22 06:15 09/27/22 06:28 Sodium Chloride 0.9% IV 09/28/22 06:14 30 mls/hr .Q24H COLTON Administration Pertinent History/Comorbid Conditions* Medical History (Updated 11/15/22 @ 22:23 by Nicolas Fernandez DO) Depression, major Duodenal diverticulum ANGELA (generalized anxiety disorder) GERD (gastroesophageal reflux disease) Hypertension Lipoma of right forearm Surgical History (Updated 02/10/22 @ 15:51 by Michael Mcgovern MD) delivery delivered History of colonoscopy 2020 History of incisional hernia repair (11/01/20) History of partial colectomy Family History (Updated 10/22/20 @ 12:11 by Belkis Gold LPN) CAD (coronary artery disease) Father Cancer Hypertension Stroke Denies family history of Anesthesia complication Bleeding disorder Social History Smoking and tobacco status: never smoked Alcohol intake: current Alcohol intake frequency: 0-2 Drinks per Day Alcohol type: beer Lives independently: Yes Marital status: Single Current occupational status: employed History of recent travel: No Pertinent Exam Findings alert, oriented x 3, operative site marked and procedure specific exam findings Examination right upper extremity she has positive Tinel's at the wrist as well as come median nerve compression test. She has decreased sensation in the median nerve distribution. She has sensation intact light touch to the radial/ulnar nerve distribution. Patient has negative Tinel's over her lipoma and negative Tinel's at the elbow. She has a roughly 3-4 cm size lipoma off the proximal forearm at subcutaneous in nature. This is soft mobile and nontender. Radial pulse 2+ hand is warm well perfused compartment soft compressible. Pertinent Data MRI right forearm was performed and read consistent with a right forearm lipoma Related Problem List Diagnoses (1) Lipoma of right forearm: (2) Carpal tunnel syndrome, right: Recommendations Surgery/Procedure today Other Plans: Right carpal tunnel syndrome Right forearm lipoma Plan for right carpal tunnel release and right forearm lipoma excision. Patient understands and agrees with current plan. All questions answered. We will proceed with surgery today. No new issues at this time. Coding Level of Care Code Acute Workers Compensation Adjuster for g Fwd Diagnoses Lipoma of right forearm D17.21 Carpal tunnel syndrome, right G56.01 Time Spent (min) 45
[2022-09-27] MEDS: clindamycin 600 MG/50 ML PREMIX 100 MG IV (07:00)
[2022-09-27] MEDS: lidocaine 1% INJ 20 mL XX (07:28)
--- NOTE | 2022-09-27 07:55 | PM.OP2 ---
Brief Operative Note Date of procedure: 09/27/22 Pre-op diagnosis: Right carpal tunnel syndrome, right forearm lipoma Post-op diagnosis: same Procedure Done: Right carpal tunnel release Right forearm lipoma excision Surgeon: Nicolas Fernandez Estimated blood loss (mL): 5 Complications: None Post-op Plan: Patient taken to PACU in stable condition. Patient recovering well. Dressings clean dry and intact. She received appropriate discharge instructions as well as pain medication postoperatively. She will follow-up with me in the office in 2 weeks. Patient understands and agrees with current plan. All questions answered. Condition: stable Disposition: same day Coding Level of Care Code Acute Junior Architect for Tammy Almanza
--- NOTE | 2022-09-27 07:57 | PM.PACU ---
PACU note Narrative: Patient taken to PACU in stable condition. Patient recovering well. Dressing clean dry and intact. Patient is able to wiggle fingers. Factors warm well-perfused brisk capillary refill less than 2 seconds. Exam: awake Disposition: discharged
[2022-09-27 08:02] VITALS: BP 107/71; PULSE 77; RESP 12; TEMP 36.8; O2SAT 96
--- NOTE | 2022-09-27 08:02 | P.OP_ITS ---
Operative Report Date of procedure: September 27, 2022 Pre-op diagnosis: Preop Diagnosis Right forearm lipoma, right carpal tunnel syndrome Post-op diagnosis: Same Procedure done: 1. Right carpal tunnel release 2. Right forearm lipoma excision Specimens removed/disposition: Right forearm lipoma removed and sent for pathology Pathology: Right forearm lipoma removed and sent for pathology Surgeon: Nicolas Fernandez DO Estimated blood loss: 5 mL 15 minutes IV fluids: See anesthesia record Complications: None Findings: See operative report narrative Condition: stable Disposition: same day Brief History: Patient seen and worked up in outpatient setting findings consistent with right carpal tunnel syndrome as well as a right forearm lipoma. This lipoma has caused patient not really pain but mostly a bothersome as this bumps or catches on things and she does not like the cosmetic appearance. Through shared decision-making she elected proceed with a right carpal tunnel syndrome as well as a right forearm lipoma excision. We detailed out the risk benefits complicat ion alternatives of surgical nonsurgical treatment options. She understands the risk of surgery and she agrees to proceed with surgical intervention. MRI was performed of the lipoma just to confirm its diagnosis which was confirmed and a benign-appearing lesion on MRI. Patient consent was obtained and patient agrees to proceed with surgical intervention. All questions answered at this time. Procedure: Patient seen evaluate in the preoperative holding area. Consent was reviewed and signed with patient. Correct extremity was then marked. Seen evaluated by anesthesia department once cleared for surgery was taken back to the operative suite. Patient was transported to the OR table all bony prominences well-padded patient was properly secured to the bed. Right upper extremities placed on an armboard. A nonsterile tourniquet was applied to the right upper extremity she underwent anesthesia per the anesthesia department. Once appropriately anesthetized she then was prepped and draped in sterile orthopedic fashion. Final timeout performed. Patient received appropriate preoperative antibiotics Esmarch tourniquet was used exsanguinate the right upper extremity. Tourniquet was insufflated 250 mmHg. Local was inserted to the right carpal tunnel. A standard carpal tunnel incision for standard mini open was then performed directly centered over the carpal tunnel. This was in line with the fourth ray and most distal extent was at the Flynn's cardinal line and this was extended just distal to the flexor crease. Sharp scalpel incision was made through skin and subcutaneous tissue self-retaining retractor and then palmar fascia was identified this was split longitudinally with scalpel. Next identified palmaris brevis muscle belly and identify the transverse carpal ligament. At this point time I then incised the transverse carpal ligament gently under loupe magnification directly. Once I incised the floor of the transverse carpal ligament I then switched to Littler dissection scissors and completed my dissection distally once encountered palmar fat the nerve was completely released distally. I then turned my dissection and bluntly spread on top of the transverse carpal ligament placed retractors in appropriate place and under direct visualization utilizing dissection scissors completely released the transverse carpal ligament proximally with keeping my dissection scissors curved ulnarly to protect the palmar cutaneous nerve branch. Motor recurrent branch was protected throughout this case. Carpal tunnel was then released all the way into the median antebrachial fascia and a [place] was then placed in both proximally and distally and showed complete decompression of the nerve. No lesions were noted on the nerve however the nerve did appear to be significantly compressed and had hourglass shape. This point time thorough irrigation was then performed wet Ray-Yoli was then placed in the incision and turned attention towards right forearm lipoma. Patient had an anteromedial volar forearm lipoma that was subcutaneous in nature. This was distal on top of the FCU fascia. I made a longitudinal i ncision directly over the mass. Identified both the proximal and distal borders. This was very consistent with a lipoma and I subsequently utilizing Littler dissection scissors mobilized around the entirety of the lipoma and then this was electrocautery to off with bipolar off of the fascia. This was directly on the fascia and no involvement with the ulnar nerve. Given the patient had no ulnar symptoms this was not further explored or decompressed. Lipoma was then sent for pathology to confirm diagnosis. Wound bed was thoroughly irrigated. This point time tourniquet was deflated hemostasis was maintained with bipolar electrocautery at the carpal tunnel incision as well as the forearm incision. Patient tolerated this procedure without complications. The incisions were then closed in standard layered fashion the carpal tunnel with interrupted nylon suture and the forearm with 3-0 Vicryl subcutaneously and nylon suture for skin. Incisions were then covered with Xeroform 4 x 4's ABD Curlex and a soft roll. Patient was then awakened from anesthesia and taken to PACU in stable condition. Patient tolerated procedure without complications. Disposition patient taken to PACU in stable condition tolerated procedure without complications. Will receive appropriate discharge instruction as well as pain medication postoperatively. Patient will follow-up with me in the office in 2 weeks. Patient understands agrees current plan. All questions answered.
[2022-09-27 08:06] VITALS: BP 114/75; PULSE 80; RESP 14; O2SAT 95
[2022-09-27 08:10] VITALS: BP 125/92; PULSE 76; RESP 16; TEMP 36.8; O2SAT 98
[2022-09-27 08:24] VITALS: BP 119/90; PULSE 66; RESP 16; O2SAT 96
--- NOTE | 2022-09-27 16:36 | ANE.PACU2 ---
Inpatient post-anesthesia follow up: Airway intact: Yes Vital signs: Temperature 98.2 F Pulse Rate 66 Respiratory Rate 16 Blood Pressure 119/90 Pulse Oximetry 96 Oxygen Delivery Me thod Room Air Oxygen Flow Rate Fraction of Inspir ed Oxygen Hydration adequate: Yes Nausea and vomiting: No Pain level: 1 Mental status: Baseline
== END 2022-09-27 08:43 | disposition home or self-care (01) ==
PROVIDERS: Anesthesiology; PCP Family Medicine; Visit Provider Student in an Organized Health Care Education/Training Program
PROC: (CPT 64721; principal; 2022-09-27 07:00)
PROC: (CPT 11403; 2022-09-27 07:00)
DX: G56.01 Carpal tunnel syndrome, right upper limb (principal); D17.21 Benign lipomatous neoplasm of skin and subcutaneous tissue of right arm; I10 Essential (primary) hypertension; K21.9 Gastro-esophageal reflux disease without esophagitis
CPT/HCPCS: 11403; 12032; 64721; 81025; 84703; 88304; J0131; J1885; J2704; J2795; J3010; J3490; J7030

== ENCOUNTER 2022-09-27 09:03 | Outpatient (CLI) | payer OTHER, MEDICAID, SELFPAY ==
--- NOTE | 2022-09-27 09:06 | MM_ITS ---
WS: [id number] RIGHT 3D TOMOSYNTHESIS DIGITAL MAMMOGRAPHY WITH CAD CLINICAL INFORMATION: ABNORMAL MAMMO HISTORY: Six-month follow-up COMPARISON: February 21, 2022 TECHNIQUE: 3 views of the right breast were obtained. FINDINGS: Scattered fibroglandular densities of the right breast. Dense parenchymal tissue anterior RIGHT breas t is similar in appearance. No significant interval changes. Ultrasound described below. ULTRASOUND BREAST RIGHT TECHNIQUE: Ultrasound right breast focused area of concern. CLINICAL INFORMATION: ABNORMAL MAMMO FINDINGS: Ultrasound RIGHT breast at the 12:00 position 3 cm from the nipple. Again seen is the lobulated hypoe choic lesion which appears slightly more prominent today with new shadowing. This is previously descr ibed as ductal. This may represent dense fibrotic tissue but indeterminant and recommend further eval uation with ultrasound-guided biopsy. Today this measures approximately 1.3 x 0.5 x 1.2 CM. Small yvette unt of associated vascularity. MM/[place] [id number] IMPRESSION: BI-RADS: 4-Suspicious Finding-Biopsy Should Be Considered FOLLOW UP: US Guided Biopsy Recommended Recommend ultrasound-guided biopsy RIGHT breast lesion
== END 2022-09-27 09:04 | disposition home or self-care (01) ==
LOC: RAD 09:03
PROVIDERS: PCP Family Medicine; Visit Provider Family Medicine
DX: R92.8 Other abnormal and inconclusive findings on diagnostic imaging of breast (principal); N63.15 Unspecified lump in the right breast, overlapping quadrants
CPT/HCPCS: 76642; 77061; G0279

== ENCOUNTER → 2022-10-20 09:16 | Day surgery (SDC) | payer MEDICAID, SELFPAY ==
[2022-10-19 09:32] VITALS: BMI 35.9
[2022-10-20 09:43] LABS: OR HCG Qualitative Urine Negative (Negative)
[2022-10-20 09:50] VITALS: BP 175/107; PULSE 90; RESP 18; TEMP 36.4; O2SAT 97
[2022-10-20] MEDS: acetaminophen 1,000 MG/100 ML PIGGYBACK 400 MG IV (09:55)
[2022-10-20] MEDS: sodium chloride 0.9% 1,000 ML 30 ML IV (09:55)
[2022-10-20] MEDS: ketorolac 30 mg/mL INJ IVP (09:57)
--- NOTE | 2022-10-20 10:47 | W.PM.OPSUD ---
Surgery/Procedure H&P Update DATE OF PROCEDURE: October 20, 2022 DATE H&P PERFORMED: 09/12/22 CHANGES TO PREVIOUS DOCUMENTATION: None PREOP DIAGNOSIS: Left carpal tunnel syndrome PRIMARY INDICATION FOR PROCEDURE: Left carpal tunnel release PLANNED PROCEDURE: Operation Date: 10/20/22 11:00 Proposed Procedures p Left hand carpal tunnel [id number],G56.0(Left) - Nicolas Fernandez DO
[2022-10-20] MEDS: clindamycin 600 MG/50 ML PREMIX 100 MG IV (11:38)
[2022-10-20] MEDS: lidocaine 2% INJ 20 mL INJECTION (11:50)
--- NOTE | 2022-10-20 12:24 | P.OP_ITS ---
Operative Report Date of procedure: October 20, 2022 Pre-op diagnosis: Preop Diagnosis Left carpal tunnel syndrome Post-op diagnosis: Same Procedure done: Left carpal tunnel release Surgeon: Nicolas Fernandez DO Estimated blood loss: 5mL 7min IV fluids: See anesthesia record Complications: None Findings: See operative report narrative Condition: stable Disposition: same day Brief History: Patient's been seen and worked up in the outpatient setting for bilateral hand carpal tunnel syndrome. EMG findings were consistent with right carpal tunnel syndrome however did not appear to have carpal tunnel syndrome on the left side. She has specific findings consistent with left carpal tunnel syndrome that is clearly evident on examination as well as she has night symptoms that wake her up at night and she states her numbness and tingling feels exactly the same as her right side. We talked about treatment options as far as nonoperative and operative intervention. She is tried conservative treatment at this point time would like to have this fixed that she has been satisfied with the right carpal tunnel release surgery. We talked about risk benefits complication alternatives surgical nonsurgical treatment options. Understanding risk with surgery she would like to proceed with surgical intervention of left carpal tunnel release surgery. All questions answered at this time. Consent reviewed and signed in the office. Procedure: Patient seen and evaluated in the preoperative holding area. Consent was reviewed and signed with patient. Correct extremity was marked. Patient was seen evaluated by the anesthesia department once cleared for surgery was brought back to the operative suite. Placement was placed onto the OR table in supine position all bony prominences were well-padded patient properly secured to the bed. Left upper extremity was then placed onto an armboard. A nonsterile tourniquet was applied to the left upper arm. Patient then underwent anesthesia per the anesthesia department. Patient's left upper extremity was then prepped and draped in standard orthopedic fashion. Final timeout performed. Patient received appropriate preoperative antibiotics. Under sterile aseptic technique patient received local anesthesia over the preplanned carpal tunnel incision site. Esmarch tourniquet was used exsanguinate the left upper extremity and tourniquet was insufflated to 250 mmHg. A standard mini open carpal tunnel incision was made. Starting distally at Flynn's cardinal line in line with the fourth ray extending proximally distal to the wrist crease. Sharp scalpel incision was made through skin and subcutaneous tissue. Self-retaining retractor was placed and the palmar fascia was identified. This was then split longitudinally and direct visualization of the transverse carpal ligament was then made. I then utilizing scalpel feathered through the transverse carpal ligament until I entered the floor of the transverse carpal tunnel ligament into the carpal tunnel. Next I switched to dissection scissors and completed my release of the transverse carpal ligament distally with care to protect the recurrent motor branch. I completely released into the palmar fat and no entrapment was noted distally. Care was made to protect the superficial palmar arch during my distal dissection. Next I then placed a [place] underneath the transverse carpal tunnel ligament to protect the contents of the carpal tunnel and subsequently utilizing dissection scissors under loupe magnification completely released the transverse carpal ligament proximally into the median antebrachial fascia. Care was made to protect the palmar cutaneous branch by keeping my scissors curved ulnarly. Once completely released, I then placed my [place] and had appropriate decompression of the carpal tunnel proximally as well as distally. I then inspected the contents of the carpal tunnel which showed an hourglass shape of the median nerve showing its compression. No masses were noted. Tendons appeared healthy. Wound was then thoroughly irrigated. Tourniquet deflated. Hemostasis satisfactory with bipolar electrocautery. I then closed the incision with interrupted nylon stitches. Xeroform 4 x 4's and a bulky soft dressing was applied to the left upper extremity. Patient was then awakened from anesthesia and taken to PACU in stable condition. Patient tolerated procedure without complications. Disposition: Patient taken to PACU in stable condition recovering well. Dressing clean dry and intact. Patient will receive appropriate discharge instructions as well as pain medication postoperatively. Patient to follow-up with me in the office in 2 weeks. They understand they may be weightbearing as tolerated to the left hand. Patient should keep incision clean dry and intact. Patient understands if any questions or concerns he may contact the office.
--- NOTE | 2022-10-20 12:24 | P.OP_ITS ---
Brief Operative Note Date of procedure: 10/24/22 Pre-op diagnosis: Left carpal tunnel syndrome Post-op diagnosis: same Procedure Done: Left carpal tunnel release Surgeon: Nicolas Fernandez Estimated blood loss (mL): 5 Complications: None Post-op Plan: Patient taken to PACU in stable condition recovering well. Patient will receive appropriate discharge instructions as well as pain medication postoperatively. We will follow-up with me in the office in 2 weeks. Condition: stable Disposition: same day Coding Level of Care Code Acute Educational Institution President for Tammy Almanza
--- NOTE | 2022-10-20 12:24 | PM.PACU ---
PACU note Narrative: Patient taken to PACU in stable condition recovering well. Dressings on in place clean dry and intact. Patient is able to wiggle fingers. Fingertips warm well perfused. Decreased sensation secondary to previous carpal tunnel syndrome as well as local anesthesia. Exam: awake Disposition: discharged
[2022-10-20 12:29] VITALS: BP 123/82; PULSE 80; RESP 14; TEMP 36.1; O2SAT 95
[2022-10-20 12:37] VITALS: BP 147/99; PULSE 86; RESP 16; O2SAT 95
[2022-10-20 12:47] VITALS: BP 153/97; PULSE 62; RESP 16; TEMP 36.6; O2SAT 98
[2022-10-20 12:57] VITALS: BP 153/97; PULSE 79; RESP 18; O2SAT 100
--- NOTE | 2022-10-20 12:59 | ANES.PREANE2 ---
Pre-Anesthetic Assessment Height/Weight: Height 1.55 m Weight 86.183 kg Temp Pulse Resp BP Pulse Ox O2 Del Method 97.8 F 79 18 153/97 100 10/20/22 12:47 10/20/22 12:57 10/20/22 12:57 10/20/22 12:57 10/20/22 12:57 10/20/22 12:57 Preop Diagnosis: Left carpal tunnel syndrome Operation Date: 10/20/22 11:00 Proposed Procedures p Left hand carpal tunnel [id number](Left) - Nicolas Fernandez, Familial anesthetic complications: none Was Beta Modesta taken within 24 hours: N/A Was Clonidine taken within 24 hours: N/A Last intake: Intake Last Liquid Date 10/19/22 Last Liquid Time 22:00 Last Solid Date 10/19/22 Last Solid Time 22:00 Social No alcohol (h/o abuse) and No tobacco Exam alert, oriented x 3, clear to auscultation bilaterally and regular rate & rhythm Airway Submandibular: within normal limits Cervical ROM: within normal limits Dentition: full CV/HEM Hypertension GI Gastroesophageal Reflux Disease Neuropsych Anxiety and Depression Anesthetic Plan ASA status: 3 Anesthesia: MAC Medications/Allergies Home Medications Medication Instructions Recorded Confirmed Last Taken Type hydroxyzine HCl 25 mg tablet 25 mg PO BID PRN anxiety/panic #60 09/21/21 10/20/22 Unknown Rx tabs metoprolol succinate 50 mg 50 mg PO DAILY 90 days #90 tabs 03/29/22 10/19/22 10/20/22 07:00 Rx tablet,extended release 24 hr bupropion HCl 150 mg 24 hr tablet, 150 mg PO QAM 30 days #30 tabs 06/19/22 10/19/22 10/14/22 Rx extended release miscellaneous medical supply See Rx Instructions miscellaneous 07/11/22 10/19/22 Unknown Rx .COMPLEX #2 ea medroxyprogesterone 150 mg/mL 150 mg IM .Every three months 90 07/18/22 10/20/22 10/12/22 Rx intramuscular suspension days #1 mL omega-3 fatty acids-fish oil 300 2 cap PO DAILY 07/19/22 10/20/22 10/14/22 History mg-500 mg capsule (Fish Oil) hydrocodone 5 mg-acetaminophen 325 1 tab PO Q6H PRN pain 7 days #28 10/20/22 Unknown Rx mg tablet tabs ondansetron 4 mg disintegrating 4 mg PO DAILY 5 days #5 tabs 10/20/22 Unknown Rx tablet Allergies Allergy/AdvReac Type Severity Reaction Status Date / Time Penicillins Allergy throat Verified 10/20/22 09:53 swelling and hives Current Medications Generic Name Dose Route Start Last Admin Trade Name Freq PRN Reason Stop Dose Admin Sodium Chloride 1,000 mls @ 30 mls/hr 10/20/22 09:30 10/20/22 11:35 Sodium Chloride 0.9% IV 10/21/22 09:29 Infused .Q24H COLTON Infusion PFSH Anesthesia Medical History (Updated 10/16/22 @ 23:35 by Nicolas Fernandez DO) Depression, major Duodenal diverticulum ANGELA (generalized anxiety disorder) GERD (gastroesophageal reflux disease) Hypertension Left carpal tunnel syndrome Lipoma of right forearm Surgical History delivery delivered History of colonoscopy 2020 History of incisional hernia repair (11/01/20) History of partial colectomy Family History Father CAD (coronary artery disease) Other Cancer Hypertension Stroke Denies family history of Anesthesia complication Bleeding disorder Social History Smoking and tobacco status: never smoked Alcohol intake: current Alcohol intake frequency: 0-2 Drinks per Day Alcohol type: beer Lives independently: Yes Marital status: Single Current occupational status: employed History of recent travel: No Female Reproductive History Spontaneous abortions: No Data Anesthesia Cardiac Studies: No Data to Display
--- NOTE | 2022-10-20 14:46 | ANE.PACU2 ---
Inpatient post-anesthesia follow up: Airway intact: Yes Vital signs: Temperature 97.8 F Pulse Rate 79 Respiratory Rate 18 Blood Pressure 153/97 Pulse Oximetry 100 Oxygen Delivery Me thod Room Air Oxygen Flow Rate Fraction of Inspir ed Oxygen Hydration adequate: Yes Nausea and vomiting: No Pain level: 2 Mental status: Baseline
== END | disposition home or self-care (01) ==
PROVIDERS: Anesthesiology; PCP Family Medicine; Visit Provider Student in an Organized Health Care Education/Training Program
PROC: (CPT 64721; principal; 2022-10-20 10:50)
DX: G56.02 Carpal tunnel syndrome, left upper limb (principal); I10 Essential (primary) hypertension; K21.9 Gastro-esophageal reflux disease without esophagitis
CPT/HCPCS: 64721; 84703; J0131; J1885; J2704; J2795; J3010; J3490; J7030

== ENCOUNTER 2022-10-24 12:37 | Outpatient (CLI) | payer MEDICAID, SELFPAY ==
--- NOTE | 2022-10-24 12:49 | US_ITS ---
WS: [id number] ULTRASOUND-GUIDED RIGHT BREAST BIOPSY HISTORY: Suspicious lesion 12:00. COMPARISON: 09/27/2022 and 02/21/2022 Procedure, risks and complications are explained to the patient. Medications are reviewed. Consent is obtained. The mass in the RIGHT breast is localized with ultrasound. Mass localizes to 12:00 at 3 cm from the n ipple. Skin is cleansed with ChloraPrep and anesthetized with 1% buffered lidocaine. Small dermatome is made. Under sterile conditions mass is biopsied with a 14-gauge Achieve needle. Multiple core biop sies are performed. Material placed in formalin and sent to pathology for review. No complications en countered. Breast tissue marker (Bard ultrasound enhanced ribbon): Single. Patient left the radiology suite with no complications. Patient is instructed to return to [facility] or [facility] with any concerns. US/[place] [id number] IMPRESSION: 1. Uncomplicated core needle biopsy RIGHT breast mass at 12:00. PATHOLOGY: Benign breast tissue with fibroadenomatoid change. No malignancy. RECOMMENDATION: 6 month RIGHT breast ultrasound follow-up.
== END 2022-10-24 12:38 | disposition home or self-care (01) ==
LOC: RAD 12:38
PROVIDERS: PCP Family Medicine; Visit Provider Family Medicine
DX: N63.25 Unspecified lump in the left breast, overlapping quadrants (principal)
CPT/HCPCS: 19083; 88305

== ENCOUNTER → 2022-12-13 09:21 | Outpatient (BNVA) | payer MEDICAID, SELFPAY | PROVIDERS: PCP Family Medicine; Visit Provider Family Medicine | DX: I10 Essential (primary) hypertension (principal); F32.1 Major depressive disorder, single episode, moderate; F41.1 Generalized anxiety disorder; Z13.6 Encounter for screening for cardiovascular disorders; Z13.220 Encounter for screening for lipoid disorders; Z12.4 Encounter for screening for malignant neoplasm of cervix; R53.83 Other fatigue; Z01.419 Encounter for gynecological examination (general) (routine) without abnormal findings; Z68.37 Body mass index [BMI] 37.0-37.9, adult; R53.82 Chronic fatigue, unspecified; R10.2 Pelvic and perineal pain; I16.0 Hypertensive urgency | CPT/HCPCS: 80053; 80061; 82607; 84443; 85025; 87624 ==

== ENCOUNTER → 2023-07-03 14:40 | Outpatient (BNVA) | payer MEDICAID, SELFPAY | PROVIDERS: PCP Family Medicine; Visit Provider Family Medicine | DX: E78.5 Hyperlipidemia, unspecified (principal); K70.0 Alcoholic fatty liver; I10 Essential (primary) hypertension; E53.8 Deficiency of other specified B group vitamins; F32.9 Major depressive disorder, single episode, unspecified; F41.1 Generalized anxiety disorder; R53.83 Other fatigue; G47.10 Hypersomnia, unspecified; R06.83 Snoring; Z30.09 Encounter for other general counseling and advice on contraception; E78.1 Pure hyperglyceridemia; F32.1 Major depressive disorder, single episode, moderate; Z30.42 Encounter for surveillance of injectable contraceptive | CPT/HCPCS: 80053; 80061; 82607; 85025 ==

== ENCOUNTER 2023-09-11 08:58 | Outpatient (CLI) | payer MEDICAID, SELFPAY ==
--- NOTE | 2023-09-11 09:00 | MM_ITS ---
WS: [id number] DIAGNOSTIC BILATERAL DIGITAL BREAST TOMOSYNTHESIS MAMMOGRAPHY WITH CAD RIGHT breast ultrasound, limited HISTORY: 6MFU POST BX, RIGHT COMPARISON: 02/10/2022, 02/21/2022 and 09/27/2022 TECHNIQUE: Bilateral craniocaudad, mediolateral oblique, and mediolateral views are submitted with to mosynthesis and SM. Computer aided detection utilized. Breast composition: There are scattered areas of fibroglandular density. Biopsy clip in the anterior RIGHT breast at the site of the prior biopsy. There has been no change in the linear asymmetry near 1 2:00. No suspicious developing calcifications. Bilateral axillary tail lymph nodes. RIGHT breast ultrasound, limited. Reidentified is elongated hypoechoic mass in the RIGHT breast at 12:00, 3 cm from the nipple now facundo uring 1.6 x 0.9 x 0.4 cm. This was previously biopsied and negative. There has been no increase in si ze. The biopsy clip is identified. Mammography demonstrates no interval change. IMPRESSION: MM/[place] [id number] BI-RADS: 2-Benign FOLLOW UP: 1 Year Follow-up Stable appearance of the asymmetry in the anterior RIGHT breast. Previous biops y showed no malignancy. Recommend routine yearly screening mammography.
--- NOTE | 2023-09-11 09:30 | US_ITS ---
WS: [id number] DIAGNOSTIC BILATERAL DIGITAL BREAST TOMOSYNTHESIS MAMMOGRAPHY WITH CAD RIGHT breast ultrasound, limited HISTORY: 6MFU POST BX, RIGHT COMPARISON: 02/10/2022, 02/21/2022 and 09/27/2022 TECHNIQUE: Bilateral craniocaudad, mediolateral oblique, and mediolateral views are submitted with to mosynthesis and SM. Computer aided detection utilized. Breast composition: There are scattered areas of fibroglandular density. Biopsy clip in the anterior RIGHT breast at the site of the prior biopsy. There has been no change in the linear asymmetry near 1 2:00. No suspicious developing calcifications. Bilateral axillary tail lymph nodes. RIGHT breast ultrasound, limited. Reidentified is elongated hypoechoic mass in the RIGHT breast at 12:00, 3 cm from the nipple now facundo uring 1.6 x 0.9 x 0.4 cm. This was previously biopsied and negative. There has been no increase in si ze. The biopsy clip is identified. Mammography demonstrates no interval change. IMPRESSION: US/US breast RT limited* [id number] BI-RADS: 2-Benign FOLLOW UP: 1 Year Follow-up Stable appearance of the asymmetry in the anterior RIGHT breast. Previous biops y showed no malignancy. Recommend routine yearly screening mammography.
== END 2023-09-11 08:59 | disposition home or self-care (01) ==
LOC: RAD 08:59
PROVIDERS: PCP Family Medicine; Visit Provider Family Medicine
DX: N63.15 Unspecified lump in the right breast, overlapping quadrants (principal); N64.89 Other specified disorders of breast
CPT/HCPCS: 76642; 77062; G0279

== ENCOUNTER 2023-11-16 08:24 | Outpatient (CLI) | payer MEDICAID, SELFPAY ==
--- NOTE | 2023-11-16 08:45 | US_ITS ---
WS: [id number] Complete ABDOMINAL ULTRASOUND HISTORY: K70.0 - Alcoholic fatty liver COMPARISON: 07/15/2021 Liver: 16.1 cm in length. Normal size liver and echogenicity. No bile duct dilatation or mass. Portal Vein: Normal hepatopetal flow with monophasic waveform. Gallbladder: Normally distended gallbladder. There is a nonshadowing soft tissue focus along the nond ependent wall of the gallbladder measuring 7 x 5 x 5 mm. There is a small adjacent cystic collection within the liver. A similar but smaller collection was also noted in 2020. CBD: 0.5 cm Pancreas: Normal size and echogenicity. Right kidney: 10.3 cm x 4.9 x 4.2 cm. Cortex:1.1 cm. Normal size and echogenicity. No hydronephrosis or mass. Left kidney: 10.9 cm x 4.4 cm x 4.0 cm. Cortex: 1.1 cm. Normal size and echogenicity. No hydronephrosis or mass. Spleen: 11.0 cm in length. Normal. Aorta and IVC: Unremarkable abdominal aorta and IVC. Impression: 1. No cholelithiasis. 2. Nonshadowing soft tissue focus along the nondependent gallbladder measures 7 x 5 x 5 mm. This may be a small amount of tumefactive sludge or a polyp. New since 2020. There is an adjacent small cyst within the liver. 3. No bile duct dilatation. 4. No hydronephrosis.
== END 2023-11-16 08:25 | disposition home or self-care (01) ==
LOC: RAD 08:24
PROVIDERS: Visit Provider Family Medicine
DX: K70.0 Alcoholic fatty liver (principal); K21.9 Gastro-esophageal reflux disease without esophagitis; R74.8 Abnormal levels of other serum enzymes; K76.89 Other specified diseases of liver
CPT/HCPCS: 76700

== ENCOUNTER 2023-11-19 20:00 | Outpatient (CLI) | payer MEDICAID, SELFPAY | END 2023-11-19 20:01 | disposition home or self-care (01) | LOC: SLEEP 11-20 06:28 | PROVIDERS: Visit Provider Family Medicine | DX: G47.33 Obstructive sleep apnea (adult) (pediatric) (principal); R09.02 Hypoxemia; G47.10 Hypersomnia, unspecified; R06.83 Snoring | CPT/HCPCS: 95810 ==

== ENCOUNTER 2024-01-09 14:32 | Outpatient (CLI) | payer MEDICAID, SELFPAY ==
[2024-01-09 15:26] LABS: Basophils # 0.1 10^3/uL (0.0-0.1); Basophils % 0.6 %; Eosinophils # 0.2 10^3/uL (0.0-0.8); Eosinophils % 2.2 %; Lymphocytes # 2.5 10^3/uL (0.8-4.8); Lymphocytes % 30.4 %; Mean Corpuscular HGB Conc 33.9 g/dL (30-55); Mean Corpuscular Hemoglobin 30.3 pg (27-33); Mean Corpuscular Volume 89.4 fl (85-98); Mean Platelet Volume 8.6 fL (7.4-10.4); Monocytes # 0.5 10^3/uL (0.2-0.9); Monocytes % 5.6 %; Neutrophils # 4.92 10^3/uL (1.8-7.7); Neutrophils % 60.8 %; Nucleated Red Blood Cells % 0 %; Platelet Count 282 10^3/cmm (157-399); Red Blood Count 4.92 10^6/uL (3.85-5.65); Red Cell Distribution Width 12.1 % (12.1-15.1); White Blood Count 8.09 10^3/uL (3.29-11.43)
[2024-01-09 16:28] LABS: Alanine Aminotransferase 45 U/L (0-33); Albumin Level 3.9 g/dL (3.5-5.2); Alkaline Phosphatase 103 U/L (35-105); Anion Gap 15.6 (5-19); Aspartate Amino Transferase 34 U/L (0-32); Blood Urea Nitrogen 6 mg/dL (6-20); Carbon Dioxide 26 mmol/L (22-29); Chloride 105 mmol/L (98-107); Glomerular Filtration Rate 90.5 mL/min (90-130); Glucose 92 mg/dL (65-115); Osmolality Calculated 293 mOsm/kg (285-295); Potassium 3.6 mmol/L (3.5-5.1); Sodium 143 mmol/L (136-145); Total Bilirubin 0.2 mg/dL (0.15-1.2); Total Protein 6.9 g/dL (6.6-8.7)
== END 2024-01-09 14:33 | disposition home or self-care (01) ==
LOC: LAB 14:33
PROVIDERS: Visit Provider Surgery
DX: Z51.81 Encounter for therapeutic drug level monitoring (principal); Z79.1 Long term (current) use of non-steroidal anti-inflammatories (NSAID); R74.8 Abnormal levels of other serum enzymes; K92.0 Hematemesis; Z79.899 Other long term (current) drug therapy
CPT/HCPCS: 36415; 80048; 80076; 83630; 83993; 85025

== ENCOUNTER 2024-02-05 23:12 | Inpatient (IN) | payer MEDICAID, SELFPAY ==
[2024-02-05 23:13] VITALS: BP 150/106; PULSE 112; RESP 20; TEMP 36.8; O2SAT 94; BMI 39.4
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
[2024-02-05 23:30] LABS: Add Urine Microscopic? NO; Charge for UA Resulting for Rev
[2024-02-05 23:31] LABS: Bilirubin Urine Neg (Negative); Blood Urine Neg (Negative); Glucose Urine UA Norm (Normal); HCG Qualitative Urine. Negative (Negative); Ketones Urine Negative (Negative); Leukocyte Esterase Urine Negative (Negative); Nitrate Urine Negative (Negative); Protein Urine Neg (Negative); Specific Gravity, Urine 1.005 (1.005-1.030); Urine Appearance Clear (CLEAR); Urine Color Yellow (Yellow); Urobilinogen Urine Neg (Negative); pH Urine 5 (5-7)
--- NOTE | 2024-02-05 23:34 | ECG_ITS ---
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 Measurements Intervals [place] Rate: 103 P: 49 CT: 120 QRS: 34 QRSD: 92 T: 44 QT: 332 QTc: 435 Interpretive Statements SINUS TACHYCARDIA NONSPECIFIC T-WAVE ABNORMALITY ABNORMAL RHYTHM ECG V1/V3. Lead reversal No previous ECG available for comparison Electronically Signed On 02-06-2024 18:14:00 CDT by Tariq Syed M.D. [email or web address]
[2024-02-05 23:35] LABS: Basophils # 0.1 10^3/uL (0.0-0.1); Basophils % 0.7 %; Eosinophils # 0.2 10^3/uL (0.0-0.8); Hematocrit 43.9 % (36-47); Lymphocytes # 3.7 10^3/uL (0.8-4.8); Lymphocytes % 39.5 %; Mean Corpuscular HGB Conc 33.9 g/dL (30-55); Mean Corpuscular Hemoglobin 30.2 pg (27-33); Mean Platelet Volume 8.3 fL (7.4-10.4); Monocytes # 0.5 10^3/uL (0.2-0.9); Neutrophils # 4.87 10^3/uL (1.8-7.7); Neutrophils % 52.2 %; Nucleated Red Blood Cells % 0 %; Platelet Count 303 10^3/cmm (157-399); Red Blood Count 4.93 10^6/uL (3.85-5.65); Red Cell Distribution Width 12.2 % (12.1-15.1); White Blood Count 9.35 10^3/uL (3.29-11.43)
[2024-02-05 23:40] LABS: Amphetamines Screen Urine Negative (Negative); Barbiturates Screen Urine Negative (Negative); Benzodiazepines Screen Urine Negative (Negative); Cocaine Screen Urine Negative (Negative); Opiate Screen Urine Negative (Negative); PCP Screen Urine Negative (Negative); THC Screen Urine Negative (Negative)
[2024-02-05 23:53] LABS: Alanine Aminotransferase 54 U/L (0-33); Albumin Level 4.2 g/dL (3.5-5.2); Alcohol Level 235 mg/dL (0-10); Alkaline Phosphatase 107 U/L (35-105); Aspartate Amino Transferase 56 U/L (0-32); Blood Urea Nitrogen 5 mg/dL (6-20); Calcium 8.3 mg/dL (8.5-10.5); Carbon Dioxide 22 mmol/L (22-29); Chloride 103 mmol/L (98-107); Creatinine Clr Calc Pharmacy 93.3677; Globulin 3.3 g/dL (1.3-4.6); Glomerular Filtration Rate 77.6 mL/min (90-130); Glucose 124 mg/dL (65-115); Osmolality Calculated 287 mOsm/kg (285-295); Sodium 139 mmol/L (136-145); Total Bilirubin 0.3 mg/dL (0.15-1.2); Total Protein 7.5 g/dL (6.6-8.7)
[2024-02-05 23:57] LABS: Acetaminophen < 5.0 ug/mL (10-30); Salicylate < 0.3 mg/dL (3-10)
--- NOTE | 2024-02-05 23:57 | PC.NURSE ---
Report called to GERARDO Jack in [facility]. All questions and concerns addressed at time of report.
[2024-02-06 00:18] VITALS: BP 131/91; PULSE 104; RESP 18; TEMP 36.4; O2SAT 96
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
[2024-02-06 04:08] VITALS: BP 98/54; PULSE 88; RESP 16; TEMP 37.1; O2SAT 97
[2024-02-06 07:47] VITALS: BP 109/73; PULSE 77; RESP 16; TEMP 36.4; O2SAT 98
[2024-02-06] MEDS: dicyclomine 10 mg Capsule 20 MG PO ×3 (09:17→21:23)
[2024-02-06] MEDS: multivitamin therapeutic Tablet 1 TAB PO (09:17)
[2024-02-06] MEDS: folic acid 1 mg Tablet PO (09:18)
[2024-02-06] MEDS: thiamine 100 mg Tablet PO (09:18)
[2024-02-06] MEDS: pantoprazole DR 40 mg Tablet PO ×2 (09:18→18:09)
[2024-02-06 12:00] VITALS: BP 128/85; PULSE 88; RESP 16; TEMP 36.6; O2SAT 98
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
[2024-02-06 14:00] VITALS: BP 147/86; PULSE 105; RESP 16; TEMP 36.6; O2SAT 98
[2024-02-06] MEDS: duloxetine 20 mg Capsule PO (18:09)
[2024-02-06 19:44] VITALS: BP 149/96; PULSE 94; RESP 17; TEMP 36.6; O2SAT 97
--- NOTE | 2024-02-06 19:49 | P.NPUDS_ITS ---
Diagnoses at Discharge Discharge Diagnosis (1) Alcohol abuse: Status: Acute (2) ANGELA (generalized anxiety disorder): Status: Acute (3) Depression, major: Status: Acute Qualifiers: Major depression recurrence: single episode Active/Remission status: currently active Major depression episode severity: moderate Qualified Code(s): F32.1 - Major depressive disorder, single episode, moderate (4) Acute anxiety: Status: Acute (5) PTSD (post-traumatic stress disorder): Status: Acute Reason for Visit Reason for Visit: MHE Involuntary Hold Information 96 Hour Hold: 96 Hour Involuntary Admission: No Mental Status Exam MSE Comments: This is an obese white female in hospital scrubs with limited grooming and eye contact. No abnormal movements except for psychomotor retardation. Cooperative with exam in mild to moderate distress. Speech was slightly decreased rate and volume. Mood described as a little down, affect is congruent.? Thought process: linear.?Thought content: patient denies current suicidal or homicidal ideation, no delusions reported or noted, she denied current auditory or visual hallucinations. Reports anxiety, particularly in social situations like going to [employer]. Reports depression and low mood, but denies suicidal ideation. Reports nightmares related to a traumatic situation at home. Attention and concentration are intact and memory appears reliable but none were formally tested. She is alert and oriented times 3. ? Insight and judgment limited. Impulse control is fair. Discharge Data Studies Completed and Pending: Laboratory Results WBC 9.35 10^3/uL (3.2 9-11.43) 02/05/24 23: RBC 4.93 10^6/uL (3.8 5-5.65) 02/05/24 23: Hgb 14.90 g/dL (11.27 -16.99) 02/05/24 23: Hct 43.9 % (36-47) 02/05/24 23: MCV 89.0 fl (85-98) 02/05/24 23: MCH 30.2 pg (27-33) 02/05/24 23: MCHC 33.9 g/dL (30-55) 02/05/24 23: RDW 12.2 % (12.1-15.1 ) 02/05/24 23: Plt Count 303 10^3/cmm (157 -399) 02/05/24 23: MPV 8.3 fL (7.4-10.4) 02/05/24: Neut % (Auto) 52.2 % 02/05/24: Lymph % (Auto) 39.5 % 02/05/24: Sheridan % (Auto) 5.0 % 02/05/24: Eos % (Auto) 2.0 % 02/05/24: Baso % (Auto) 0.7 % 02/05/24 Neut # (Auto) 4.87 10^3/uL (1.8 -7.7) 02/05/24: Lymph # (Auto) 3.7 10^3/uL (0.8- 4.8) 02/05/24: Sheridan # (Auto) 0.5 10^3/uL (0.2- 0.9) 02/05/24 Eos # (Auto) 0.2 10^3/uL (0.0- 0.8) 02/05/24 Baso # (Auto) 0.1 10^3/uL (0.0- 0.1) 02/05/24 Nucleated RBC % (a uto) 0 % 02/05/24 Nucleated RBCs # 0.0 /100WBC 02/05/24: Sodium 139 mmol/L (136-1 45) 02/05/24: Potassium 4.0 mmol/L (3.5-5 .1) 02/05/24: Chloride 103 mmol/L (98-10 7) 02/05/24: Carbon Dioxide 22 mmol/L (22-29) 02/05/24: Anion Gap 18.0 (5-19) 02/05/24: BUN 5 mg/dL (6-20) L 02/05/24: Creatinine 0.8 mg/dL (0.5-0. 9) 02/05/24 GFR Calculation 77.6 mL/min (90-1 30) L 02/05/24: Glucose 124 mg/dL (65-115 ) H 02/05/24: Calculated Osmolal ity 287 mOsm/kg (285- 295) 02/05/24:29 Calcium 8.3 mg/dL (8.5-10 .5) L 02/05/24 23:29 Total Bilirubin 0.3 mg/dL (0.15-1 .2) 02/05/24 23:29 AST 56 U/L (0-32) H 02/05/24 23:29 ALT 54 U/L (0-33) H 02/05/24 23:29 Alkaline Phosphata se 107 U/L (35-105) H 02/05/24 23:29 Total Protein 7.5 g/dL (6.6-8.7 ) 02/05/24 23:29 Albumin 4.2 g/dL (3.5-5.2 ) 02/05/24 23:29 Globulin 3.3 g/dL (1.3-4.6 ) 02/05/24 23:29 HCG, Qual Negative (Negati ve) 02/05/24 23:20 Urine Color Yellow (Yellow) 02/05/24 23:20 Urine Appearance Clear (CLEAR) 02/05/24 23:20 Urine pH 5 (5-7) 02/05/24 23:20 Ur Specific Gravit y 1.005 (1.005-1.0 30) 02/05/24 23:20 Urine Protein Neg (Negative) 02/05/24 23:20 Urine Glucose (UA) Norm (Normal) 02/05/24 23:20 Urine Ketones Negative (Negati ve) 02/05/24 23:20 Urine Blood Neg (Negative) 02/05/24 23:20 Urine Nitrate Negative (Negati ve) 02/05/24 23:20 Urine Bilirubin Neg (Negative) 02/05/24 23:20 Urine Urobilinogen Neg mg/dL (Negati ve) 02/05/24 23:20 Ur Leukocyte Ernestine ase Negative (Negati ve) 02/05/24 23:20 Salicylates < 0.3 mg/dL (3-10 ) L 02/05/24 23:29 Urine Opiates Scre en Negative ng/mL (N egative) 02/05/24 23:20 Acetaminophen < 5.0 ug/mL (10-3 0) L 02/05/24 23:29 Ur Barbiturates Sc reen Negative ng/mL (N egative) 02/05/24 23:20 Ur Phencyclidine S crn Negative ng/mL (N egative) 02/05/24 23:20 Ur Amphetamines Sc reen Negative ng/mL (N egative) 02/05/24 23:20 U Benzodiazepines Scrn Negative ng/mL (N egative) 02/05/24 23:20 Urine Cocaine Scre en Negative ng/mL (N egative) 02/05/24 23:20 U Marijuana (THC) Screen Negative ng/mL (N egative) 02/05/24 23:20 Ethyl Alcohol 235 mg/dL (0-10) H 02/05/24 23:29 Vitals: Last Vital Signs Temp 97.9 F 02/06/24 19:44 Pulse 94 02/06/24 19:44 Resp 17 02/06/24 19:44 BP 149/96 02/06/24 19:44 Pulse Ox 97 02/06/24 19:44 O2 Del Method Room Air 02/06/24 19:44 Discharge Plan Discharge Patient Disposition: Home Condition: Stable Prescriptions: New Vitamin B-1 (mononitrate) 100 mg Tablet 100 mg PO DAILY 30 Days Qty: 30 1RF Continued dicyclomine 20 mg tablet 20 mg PO TID (DME) covid test See Rx Instructions .Route .MEDSUPPLY Qty: 6 3RF Rx Instructions: As directed fluticasone propionate 50 mcg/actuation spray,suspension 1 spray intranasal BID PRN (Reason: allergy symptoms) Qty: 16 5RF Rx Instructions: administer into each nostril Zyrtec 10 mg tablet 10 mg PO DAILY Cymbalta 20 mg capsule,delayed release(DR/EC) 20 mg PO BID Zestril 40 mg tablet 40 mg PO DAILY Depo-Provera 150 mg/mL suspension 150 mg IM .Every three months Rx Instructions: 150mg every 3 months; Hold for now. metoprolol succinate [Toprol XL] 100 mg tablet extended release 24 hr 100 mg PO DAILY omeprazole 40 mg capsule,delayed release(DR/EC) 40 mg PO BID Discharge Orders: Discharge Order (Routine); Ordered 02/06/24 Ordered By: Srinath Walker Referrals: [facility] [Other] (You will need to call and schedule an appointment. ) [facility] [Outside] - 02/08/24 8:30 am (Initial appointment with Heather Lawler) Carri Walker MD [Primary Care Provider] - Discharge Diet: Regular Discharge Activity: Resume usual activity Patient Instructions: Opioid Safety Discharge Attestations NPU Time Spent in Discharge Care*: less than 30 min Specific Discharge Activities: Specific discharge activities: educating patient, discussing with dependency case manager/social workers/dc planners, documenting/other paperwork and evaluating patient/reviewing data Coding Level of Care Code Acute Code for [facility] Fwd Diagnoses Alcohol abuse F10.10 ANGELA (generalized anxiety disorder) F41.1 Current moderate episode of major depressive disorder without prior episode F32.1 Major depression recurrence: single episode Active/Remission status: currently active Major depression episode severity: moderate Acute anxiety F41.9 PTSD (post-traumatic stress disorder) F43.10
[2024-02-06] MEDS: cetirizine 10 mg Tablet PO (21:23)
[2024-02-06] MEDS: lisinopril 20 mg Tablet 40 MG PO (21:23)
[2024-02-06] MEDS: metoprolol succinate ER (24 HR) 100 mg Tablet PO (21:24)
== END 2024-02-06 21:39 | disposition home or self-care (01) | DRG 885 ==
LOC: ER 23:30 → NP 23:51
PROVIDERS: Admitting Provider Psychiatry & Neurology Psychiatry; Emergency Provider Emergency Medicine; PCP Family Medicine; Visit Provider Psychiatry & Neurology Psychiatry
DX: F33.1 Major depressive disorder, recurrent, moderate (principal); F41.1 Generalized anxiety disorder; F43.10 Post-traumatic stress disorder, unspecified; F10.10 Alcohol abuse, uncomplicated; Y90.7 Blood alcohol level of 200-239 mg/100 ml; I10 Essential (primary) hypertension; K21.9 Gastro-esophageal reflux disease without esophagitis
CPT/HCPCS: 36415; 80053; 80306; 80307; 81003; 81025; 85025; 93005; 97150; 97165; 99285

== ENCOUNTER 2024-03-06 08:00 | Day surgery (SDC) | payer MEDICAID, SELFPAY ==
[2024-03-06 08:13] LABS: OR HCG Qualitative Urine Negative (Negative)
[2024-03-06 08:19] VITALS: BP 133/86; PULSE 97; RESP 16; TEMP 36.2; O2SAT 98; BMI 38.1
[2024-03-06] MEDS: sodium chloride 0.9% 1,000 ML 30 ML IV (08:27)
--- NOTE | 2024-03-06 08:50 | P.HP_ITS ---
Same Day Surgery H&P Indication for Procedure/HPI DATE OF PROCEDURE: March 06, 2024 CHIEF COMPLAINT/INDICATIONFOR SURGICAL PROCEDURE: abdominal pain, history of diverticulitis PREOP DIAGNOSIS: abdominal pain PLANNED PROCEDURE: Operation Date: 03/06/24 09:30 Proposed Procedures p [id number] egd [id number] colon G0105 screen colon H risk K82.9 , K21.9 ,K70.0 , Z 12.11(Not Applicable) - Sal Ibrahim MD s Colonoscopy(Not Applicable) - Sal Ibrahim MD Medications/Allergies* Home Medications Medication Instructions Recorded Confirmed Type dicyclomine 20 mg tablet 20 mg PO TID 12/04/23 03/06/24 History cetirizine 10 mg tablet (Zyrtec) 10 mg PO DAILY PRN seasonal allergy 02/06/24 03/06/24 History duloxetine 20 mg capsule,delayed 20 mg PO BID depression 02/06/24 03/06/24 History release (Cymbalta) medroxyprogesterone 150 mg/mL 150 mg IM .Every three months 02/06/24 03/04/24 History intramuscular suspension Hormones (Depo-Provera) metoprolol succinate 100 mg 100 mg PO DAILY HTN 02/06/24 03/06/24 History tablet,extended release 24 hr (Toprol XL) omeprazole 40 mg capsule,delayed 40 mg PO BID GERD 02/06/24 03/06/24 History release Allergies/Adverse Reactions Allergy/AdvReac Type Severity Reaction Status Date / Time Penicillins Allergy throat Verified 03/06/24 08:14 swelling and hives Current Medications: Generic Name Dose Route Start Last Admin Trade Name Freq PRN Reason Stop Dose Admin Sodium Chloride 1,000 mls @ 30 mls/hr 03/06/24 08:15 03/06/24 08:27 Sodium Chloride 0.9% IV 30 mls/hr .Q24H COLTON Administration Pertinent History/Comorbid Conditions* Medical History (Updated 03/05/24 @ 00:01 by DESTINEY Courtney) Psychiatric care Depression Elevated liver enzymes Left carpal tunnel syndrome Lipoma of right forearm Duodenal diverticulum Depression, major ANGELA (generalized anxiety disorder) GERD (gastroesophageal reflux disease) Hypertension Surgical History (Updated 02/10/22 @ 15:51 by Michael Mcgovern MD) History of colonoscopy 2019 History of incisional hernia repair (11/01/20) delivery delivered History of partial colectomy Family History (Updated 10/22/20 @ 12:11 by Belkis Gold LPN) CAD (coronary artery disease) Father Cancer Hypertension Stroke Denies family history of Anesthesia complication Bleeding disorder Social History Smoking and tobacco/nicotine status: never used tobacco/nicotine Alcohol intake: current Alcohol intake frequency: 0-2 Drinks per Day Alcohol type: beer Substance/Drug Use: never Lives independently: Yes Marital status: Single Current occupational status: employed Pertinent Exam Findings alert, oriented x 3 and clear to auscultation bilaterally Recommendations Surgery/Procedure today Coding Level of Care Code Acute Code for Chg Fwd
--- NOTE | 2024-03-06 09:25 | P.ANESASSM_ITS ---
Pre-Anesthetic Assessment Height/Weight: Height 1.55 m Weight 91.626 kg Temp Pulse Resp BP Pulse Ox O2 Del Method 97.1 F L 97 16 133/86 98 Room Air 03/06/24 08:19 03/06/24 08:19 03/06/24 08:19 03/06/24 08:19 03/06/24 08:19 03/06/24 08:19 Preop Diagnosis: abdominal pain Operation Date: 03/06/24 09:30 Proposed Procedures p [id number] egd 53620 colon G0105 screen colon H risk K82.9 , K21.9 ,K70.0 , Z12.11(Not Applicable) - Sal Ibrahim MD s Colonoscopy(Not Applicable) - Sal Ibrahim MD Familial anesthetic complications: None Was Beta Modesta taken within 24 hours: Yes Was Clonidine taken within 24 hours: N/A Last intake: Intake Last Liquid Date 03/05/24 Last Liquid Time 20:00 Last Solid Date 03/04/24 Last Solid Time 20:00 Social Alcohol (A few beers daily) and No tobacco Exam alert, oriented x 3, clear to auscultation bilaterally and regular rate & rhythm Airway Submandibular: within normal limits Cervical ROM: within normal limits Mallampati: Class II Dentition: full History/ROS No significant history except as noted and No significant complaints Pulmonary Exertional Dyspnea and Sleep Apnea CV/HEM Hypertension None reported Hepatic Cirrhosis GI Gastroesophageal Reflux Disease Acute pancreatitis 2 weeks ago, no intervention Metabolic Morbid Obesity [facility] None reported Neuropsych Anxiety and Depression Anesthetic Plan ASA status: 3 Anesthesia: Anesthesia Evaluation, General and MAC Medications/Allergies Home Medications Medication Instructions Recorded Confirmed Last Taken Type fluticasone propionate 50 1 spray intranasal BID PRN allergy 11/07/23 03/06/24 03/05/24 Rx mcg/actuation nasal symptoms #16 grams spray,suspension dicyclomine 20 mg tablet 20 mg PO TID 12/04/23 03/06/24 03/05/24 History cetirizine 10 mg tablet (Zyrtec) 10 mg PO DAILY PRN seasonal allergy 02/06/24 03/06/24 03/05/24 History duloxetine 20 mg capsule,delayed 20 mg PO BID depression 02/06/24 03/06/24 03/05/24 History release (Cymbalta) medroxyprogesterone 150 mg/mL 150 mg IM .Every three months 02/06/24 03/04/24 0 03/04/24 History intramuscular suspension Hormones (Depo-Provera) metoprolol succinate 100 mg 100 mg PO DAILY HTN 02/06/24 03/06/24 03/06/24 06:30 History tablet,extended release 24 hr (Toprol XL) omeprazole 40 mg capsule,delayed 40 mg PO BID GERD 02/06/24 03/06/24 03/05/24 History release Allergies Allergy/AdvReac Type Severity Reaction Status Date / Time Penicillins Allergy throat Verified 03/06/24 08:14 swelling and hives Current Medications Generic Name Dose Route Start Last Admin Trade Name Freq PRN Reason Stop Dose Admin Sodium Chloride 1,000 mls @ 30 mls/hr 03/06/24 08:15 03/06/24 08:27 Sodium Chloride 0.9% IV 30 mls/hr .Q24H COLTON Administration PFSH Anesthesia Medical History Psychiatric care Depression Elevated liver enzymes Left carpal tunnel syndrome Lipoma of right forearm Duodenal diverticulum Depression, major ANGELA (generalized anxiety disorder) GERD (gastroesophageal reflux disease) Hypertension Surgical History History of colonoscopy 2020 History of incisional hernia repair (11/01/20) delivery delivered History of partial colectomy Family History Father CAD (coronary artery disease) Other Cancer Hypertension Stroke Denies family history of Anesthesia complication Bleeding disorder Social History Smoking and tobacco/nicotine status: never used tobacco/nicotine Alcohol intake: current Alcohol intake frequency: 0-2 Drinks per Day Alcohol type: beer Substance/Drug Use: never Lives independently: Yes Marital status: Single Current occupational status: employed Female Reproductive History Spontaneous abortions: No Data Anesthesia Cardiac Studies: No Data to Display
[2024-03-06 10:33] VITALS: BP 80/50; PULSE 86; RESP 18; TEMP 36.3; O2SAT 93
[2024-03-06 10:40] VITALS: BP 98/64; PULSE 72; RESP 18; O2SAT 92
[2024-03-06 10:50] VITALS: BP 90/52; PULSE 78; RESP 18; O2SAT 94
[2024-03-06 11:02] VITALS: BP 104/67; PULSE 69; RESP 18; O2SAT 95
== END 2024-03-06 11:15 | disposition home or self-care (01) ==
PROVIDERS: Anesthesiology; PCP Family Medicine; Visit Provider Surgery
PROC: 0DJ08ZZ Inspection of Upper Intestinal Tract, Via Natural or Artificial Opening Endoscopic (ICD-10-PCS; CPT 43235; principal; 2024-03-06 09:30)
PROC: 0DJD8ZZ Inspection of Lower Intestinal Tract, Via Natural or Artificial Opening Endoscopic (ICD-10-PCS; CPT 45378; 2024-03-06 09:30)
DX: Z12.11 Encounter for screening for malignant neoplasm of colon (principal); K21.9 Gastro-esophageal reflux disease without esophagitis; K82.9 Disease of gallbladder, unspecified; K70.0 Alcoholic fatty liver; K57.30 Diverticulosis of large intestine without perforation or abscess without bleeding; K29.50 Unspecified chronic gastritis without bleeding; G47.30 Sleep apnea, unspecified; E66.01 Morbid (severe) obesity due to excess calories; Z68.38 Body mass index [BMI] 38.0-38.9, adult; I10 Essential (primary) hypertension
CPT/HCPCS: 43239; 45378; 81025; 88305; J2704; J7030

== ENCOUNTER 2024-03-19 20:00 | Outpatient (CLI) | payer MEDICAID, SELFPAY | END 2024-03-19 20:01 | disposition home or self-care (01) | LOC: SLEEP 03-20 06:10 | PROVIDERS: PCP Family Medicine; Visit Provider Family Medicine | DX: G47.33 Obstructive sleep apnea (adult) (pediatric) (principal) | CPT/HCPCS: 95811 ==

== ENCOUNTER → 2024-04-22 10:04 | Outpatient (BNVA) | payer MEDICAID, SELFPAY | PROVIDERS: PCP Family Medicine; Visit Provider Nurse Practitioner Psychiatric/Mental Health | DX: Z79.899 Other long term (current) drug therapy (principal) | CPT/HCPCS: 80053; 80061; 83036 ==

== ENCOUNTER → 2024-09-30 07:49 | Outpatient (BNVA) | payer MEDICAID, SELFPAY | PROVIDERS: PCP Family Medicine; Visit Provider Surgery | DX: K82.4 Cholesterolosis of gallbladder (principal) | CPT/HCPCS: 99214 ==

== ENCOUNTER 2024-12-11 07:45 | Outpatient (CLI) | payer MEDICAID, SELFPAY ==
--- NOTE | 2024-12-11 07:50 | MM_ITS ---
WS: [id number] BILATERAL SCREENING DIGITAL TOMOSYNTHESIS MAMMOGRAM WITH CAD HISTORY: SCREENING COMPARISON: 09/11/2023, 09/27/2022, 02/10/2022 Bilateral CC and MLO views with tomosynthesis and synthetic mammography submitted. Computer aided detection analyzed. Breast composition: The breasts are heterogeneously dense, which may obscure small masses. No suspicious masses, microcalcifications or architectural distortion. Scattered asymmetries throughout each breast are stable. Biopsy clip 12:00 RIGHT breast. No new mass or increasing asymmetries. MM/MM scr tomosynthesis [id number] IMPRESSION: BI-RADS: 2 - Benign. FOLLOW UP: 1 Year Follow-up
== END 2024-12-11 07:46 | disposition home or self-care (01) ==
PROVIDERS: PCP Family Medicine; Visit Provider Family Medicine
DX: Z12.31 Encounter for screening mammogram for malignant neoplasm of breast (principal); R92.333 Mammographic heterogeneous density, bilateral breasts; N64.89 Other specified disorders of breast
CPT/HCPCS: 77063; 77067

== ENCOUNTER → 2025-03-11 13:53 | Outpatient (BNVA) | payer MEDICAID, SELFPAY | PROVIDERS: PCP Family Medicine; Visit Provider Specialist | DX: S42.255A Nondisplaced fracture of greater tuberosity of left humerus, initial encounter for closed fracture (principal); W19.XXXA Unspecified fall, initial encounter | CPT/HCPCS: 23600; 73030; 73060; 99204 ==

== ENCOUNTER → 2025-04-01 09:28 | Outpatient (BNVA) | payer MEDICAID, SELFPAY | PROVIDERS: PCP Family Medicine; Visit Provider Specialist | DX: S42.255D Nondisplaced fracture of greater tuberosity of left humerus, subsequent encounter for fracture with routine healing (principal); W19.XXXD Unspecified fall, subsequent encounter | CPT/HCPCS: 73030 ==

== ENCOUNTER → 2025-05-06 13:46 | Outpatient (BNVA) | payer MEDICAID, SELFPAY | PROVIDERS: PCP Family Medicine; Visit Provider Specialist | DX: S42.255D Nondisplaced fracture of greater tuberosity of left humerus, subsequent encounter for fracture with routine healing (principal); X58.XXXD Exposure to other specified factors, subsequent encounter | CPT/HCPCS: 73030 ==